=== PATIENT | female | born 1970 | race Caucasian/White ===

== ENCOUNTER 2019-06-11 23:39 | Inpatient (IN) | payer MEDICARE, OTHER ==
[~2019-06-11] VITALS: Ht 165.1 cm; Wt 112.3 kg
[2019-06-11] MEDS ORDERED: ELIQ5TAB PO (23:47)
[2019-06-11] MEDS ORDERED: SYNT175T2 PO (23:47)
[2019-06-11] MEDS ORDERED: [UNRECOGNIZED DRUG - REMARK] (23:57)
[2019-06-11] MEDS ORDERED: [UNRECOGNIZED DRUG - REMARK] (23:57)
[2019-06-12] VITALS (23 sets, daily range): BP systolic 92–154; BP diastolic 47–96
[2019-06-12] MEDS ORDERED: SING4GRA PO (00:02)
[2019-06-12] MEDS ORDERED: PLAQ200T4 PO (00:02)
[2019-06-12] MEDS ORDERED: GABA-845 PO (00:07)
[2019-06-12] MEDS ORDERED: MAGN400C2 PO (00:07)
[2019-06-12 00:32] LABS: BASO % 0.7 % (0.0-1.0); EOS % 0.4 % (0.0-3.0); LYMPH # 0.8 10^3/uL (1.5-5.0); LYMPH % 14.8 % (24.0-44.0); MEAN CORPUSCULAR HEMOGLOBIN 23.6 pg (27.0-33.0); MEAN CORPUSCULAR HGB CONC 29.3 g/dl (32.0-36.5); MEAN CORPUSCULAR VOLUME 80.5 fl (80.0-96.0); MONO # 0.5 10^3/uL (0.0-0.8); MONO % 8.1 % (0.0-5.0); NEUTROPHILS # 4.2 10^3/uL (1.5-8.5); NEUTROPHILS % 74.6 % (36.0-66.0); PLATELET COUNT, AUTOMATED 264 10^3/uL (150-450); RED BLOOD COUNT 2.46 10^6/uL (4.00-5.40); WHITE BLOOD COUNT 5.6 10^3/uL (4.0-10.0)
[2019-06-12 00:33] LABS: HEMATOCRIT 19.8 % (36.0-47.0); HEMOGLOBIN 5.8 g/dl (12.0-15.5)
[2019-06-12 00:50] LABS: BLOOD UREA NITROGEN 9 MG/DL (7-18); CALCIUM LEVEL 8.1 MG/DL (8.5-10.1); CARBON DIOXIDE LEVEL 26 MEQ/L (21-32); CHLORIDE LEVEL 100 MEQ/L (98-107); CK-MB VALUE MASS < 1.0 NG/ML (<3.6); CPK CREATINE PHOSPHOKINASE 123 U/L (26-192); CREATININE FOR GFR 1.01 MG/DL (0.55-1.30); GLOMERULAR FILTRATION RATE > 60.0 (>58); GLUCOSE, FASTING 166 MG/DL (70-100); MB/CK RELATIVE INDEX 0.81 (< OR =4); POTASSIUM SERUM 4.1 MEQ/L (3.5-5.1); SODIUM LEVEL 135 MEQ/L (136-145); TROPONIN I < 0.02 NG/ML (< 0.10)
[2019-06-12] MEDS ORDERED: HYDR200T3 PO (01:22)
[2019-06-12] MEDS ORDERED: SYNT175T2 PO (01:22)
[2019-06-12] MEDS ORDERED: SING10TA32 PO (01:22)
[2019-06-12] MEDS ORDERED: [UNRECOGNIZED DRUG - CODE] PO (01:22)
[2019-06-12] MEDS ORDERED: CVS400CA PO (01:22)
[2019-06-12] MEDS ORDERED: GABA-843 PO ×2 (01:22)
[2019-06-12] MEDS ORDERED: DIGO0.25 PO (01:22)
[2019-06-12] MEDS ORDERED: PROAAER10 INH (01:22)
[2019-06-12] MEDS ORDERED: ARTIDRO2 OU (01:22)
[2019-06-12] MEDS ORDERED: ACET-907 PO (01:22)
[2019-06-12] MEDS ORDERED: ELIQ5TAB PO (01:22)
[2019-06-12] MEDS ORDERED: MAGN400T3 PO (01:22)
--- NOTE | 2019-06-12 01:36 | HPEPDOC ---
[facility] Medical History & Physical Date of Admission Jun 12, 2019 Date of Service: Jun 12, 2019 Attending Physician: ALLYSON OVALLE MD History and Physical TIME OF SERVICE: 3:20 AM CHIEF COMPLAINT: Dizziness HISTORY OF PRESENT ILLNESS: This is a 48-year-old female who presents with complaints of feeling dizzy which has made it more difficult for her to walk. She reports bumping into the wall and various things. She has a history of dysfunctional uterine bleeding for a few months and has been seeing her camera technician in [place] who planned to refer her to [place] [facility] for hysterectomy because she was told that she was "high risk" because of her cardiac history. Over the last week the patient reports bleeding more heavily than usual, passing clots and having "abdominal pressure". According to her , who is at the bedside, the patient looks more pale than usual. Per Dr. Quinn, Dr. Horn BARREL TURNER is aware of this case. REVIEW OF SYSTEMS: 12 point review of systems negative except as listed in HPI PAST MEDICAL/ SURGICAL HISTORY: Atrial fibrillation. Nonobstructive CAD CHF, type unknown. Hypothyroidism. Sjgren syndrome. Vitiligo. Small fiber neuropathy Chronic hypertension She denies having history of diabetes, or CVA SOCIAL HISTORY: Nonsmoker. Does not drink alcohol FAMILY HISTORY: CAD Thyroid disorder. Myositis. ALLERGIES: Please see below. HOME MEDICATIONS: Please see below. PHYSICAL EXAMINATION: VITAL SIGNS: Please see below. GENERAL APPEARANCE: Well-nourished, well-developed, not in apparent distress HEENT: Normocephalic, atraumatic, she has conjunctival pallor, mucous members are moist and pink CARDIOVASCULAR: Regular rate and rhythm. No murmurs, rubs or gallops LUNGS: Clear to bilaterally on room air ABDOMEN: Abdomen is soft and the patient is complaining of discomfort with palpation of the lower quadrants MUSCULOSKELETAL: Range of motion is intact in all 4 extremities INTEGUMENT: She has generalized pallor NEUROLOGICAL: Cranial nerves II-12 grossly intact. Speech is not dysarthric PSYCHIATRIC: Alert and oriented to person, place and time, able to understand and follow commands LABORATORY DATA: See below. ASSESSMENT: Ms. Hogan is a 42 female with a past medical history of small fiber neuropathy, vitiligo, Sjogren syndrome, hypothyroidism, unspecified type of CHF, atrial fibrillation, & nonobstructive CAD who will be admitted for management of acute anemia, likely due to dysfunctional uterine bleeding. PLAN: 1. Acute blood loss anemia. Likely due to dysfunctional uterine bleeding. 3. Units of PRBCs have been ordered, but only one unit has been transfused Plan: Admit to medical floor/ f/u ortho stats / NPO pending Eval/follow-up iron panel, serial hemoglobin 2.SIRS Source TBD SIRS criterial include T 100.9 and HR 126 She is c/o abdominal pain therefore she may have a UTI or Endometritis Plan: telemetry / f/u lactic acid/ IVF/ will give one dose of empiric zosyn / f/u blood cx, UA w Ucx 3. Atrial fibrillation. Plan: Hold Elquis / c/w Digoxin 4. Nonobstructive CAD Plan: Resume home meds except for aspirin 5. CHF, type unknown. Control blood pressure Plan: Resume lasix 6. Hypothyroidism. Plan: Resume Synthroid 7. 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 Chronic hypertension Plan: Resume lisinopril & diltiazem 9. Asthma ? Plan: c/w Albuterol and Singulair 10. Morbid Obesity BMI 41.1kg/m2 Plan: can f/u AC/ she can f/u w her PCP for STOP BANG questionnaire director compensation consult & referral for Bariatric Surgeon / recommend cardiovascular exercise for 40 min 4-5 days a week DVT prophylaxis with SCDs. Disposition: likely home after more than 2 midnight stay Vital Signs Vital Signs Date Time Temp Pulse Resp B/P (MAP) Pulse Ox O2 Delivery O2 Flow Rate FiO2 06/12/19 00:46 105 18 06/12/19 00:31 100.8 06/11/19 23:58 186/86 (119) 97 06/11/19 23:40 Room Air Laboratory Data Labs 24H Laboratory Tests 2 06/12/19 00:16: Immature Granulocyte % (Auto) 1.4, Neutrophils (%) (Auto) 74.6H, Lymphocytes (%) (Auto) 14.8L, Monocytes (%) (Auto) 8.1H, Eosinophils (%) (Auto) 0.4, Basophils (%) (Auto) 0.7, Neutrophils # (Auto) 4.2, Lymphocytes # (Auto) 0.8L, Monocytes # (Auto) 0.5, Eosinophils # (Auto) 0.0, Basophils # (Auto) 0.0, Nucleated Red Blood Cells % (auto) 1.1H, Anion Gap 9, Glomerular Filtration Rate > 60.0, Calcium Level 8.1L, Total Creatine Kinase 123, Creatine Kinase MB < 1.0, Creatine Kinase MB Relative Index 0.81, Troponin I < 0.02 CBC/BMP Laboratory Tests 06/12/19 00:16 Home Medications Scheduled Apixaban (Eliquis) 5 Mg Tablet, 5 MG PO BID Cholecalciferol (Vitamin D3) (Vitamin D3) 400 Unit Capsule, 400 UNIT PO DAILY LUNCHTIME Digoxin (Digoxin) 250 Mcg Tablet, 250 MCG PO DAILY Diltiazem HCl (Diltiazem 12Hr ER) 90 Mg Cap.er.12h, 90 MG PO DAILY LUNCHTIME Furosemide (Furosemide) 20 Mg Tablet, 10 MG PO DAILY Gabapentin (Gabapentin) 300 Mg Capsule, 300 MG PO TID BREAKFAST, LUNCH AND DINNER Gabapentin (Gabapentin) 300 Mg Capsule, 600 MG PO QHS Hydroxychloroquine Sulfate (Hydroxychloroquine Sulfate) 200 Mg Tablet, 200 MG PO BID Levothyroxine Sodium (Synthroid) 175 Mcg Tablet, 175 MCG PO DAILY Lisinopril (Lisinopril) 10 Mg Tablet, 10 MG PO DAILY Magnesium Oxide (Magnesium Oxide) 400 Mg Tablet, 400 MG PO QPM DINNERTIME Montelukast Sodium (Singulair) 10 Mg Tablet, 10 MG PO QPM DINNERTIME Scheduled PRN Acetaminophen (Tylenol) 325 Mg Tablet, 325 MG PO Q4H PRN for PAIN Albuterol Sulfate (Proair Hfa) 8.5 Gm Hfa.aer.ad, 2 PUFF INH QID PRN for SHORTNESS OF BREATH Polyvinyl Alcohol (Artificial Tears) 15 Ml Drops, 2 DROP OU QID PRN for DRY EYES Allergies Coded Allergies: Sulfa (Sulfonamide Antibiotics) (Verified Allergy, Intermediate, Hives, 06/11/19) aspirin (Verified Allergy, Intermediate, hives, 06/11/19) A-FIB/CHADSVASC A-FIB History Current/History of A-Fib/PAF?: Yes Current PO Anticoag Therapy: Yes Age/Risk Factor Scoring CHADSVASC: CHADSVASC Response (Comments) Value Age Risk Factor Age < 65 years old 0 Gender Risk Factor Female 1 Hx of CHF Yes 1 Hx of HTN Yes 1 Hx of Stroke/TIA/or VTE No 0 Hx of Diabetes No 0 Hx of Vascular Disease No 0 Total 3 Treatment Treatment ordered: Apixaban ALLYSON OVALLE MD Jun 12, 2019 01:36
[2019-06-12] MEDS ORDERED: NS 1,000 ML IV ONE (01:45)
[2019-06-12] MEDS ORDERED: NS 1,000 ML IV SCH (02:45)
[2019-06-12] MEDS ORDERED: FURO20TA2 PO (04:04)
[2019-06-12] MEDS ORDERED: LISI10TA4 PO (04:04)
[2019-06-12] MEDS ORDERED: ACETAMINOPHEN 650MG ER TAB (TYLENOL ARTHRITIS) PO PRN (05:15)
[2019-06-12] MEDS ORDERED: ALBUTEROL 90 MCG/ACT 8GM HFA INHALER INH PRN (05:30)
[2019-06-12] MEDS ORDERED: POLYVINYL ALCOHOL OPHTH SOLN 15 ML(LIQUITEARS) OU PRN (05:30)
--- NOTE | 2019-06-12 06:19 | REP ---
Clinical: Acute chest pain . Comparison: None . Findings: The mediastinum and cardiac silhouette are stable and within normal limits for portable technique. The lung decker are clear without acute consolidation, effusion, or pneumothorax. Skeletal structures are intact. Impression: No acute cardiopulmonary process appreciated. Electronically Signed by Vernon Lawrence MD 06/12/2019 06:10 A
[2019-06-12] MEDS ORDERED: PIPERACILLIN/TAZOBACTAM SOD 3.375 GM in D5W MINI-BAG PLUS 50 ML IV ONE (06:30)
[2019-06-12] MEDS ORDERED: PILL CUTTER 1 EACH XX PRN (06:30)
[2019-06-12 07:55] LABS: INR 1.25; PROTHROMBIN TIME 15.4 SECONDS (11.8-14.0)
[2019-06-12] MEDS: LEVOTHYROXINE 150MCG TABLET (0.15MG) PO SCH (07:58)
[2019-06-12 08:16] LABS: PERCENT SATURATION 25.4 % (13.2-45.0)
[2019-06-12] MEDS: GABAPENTIN 300 MG CAP PO SCH ×4 (08:53→20:37)
[2019-06-12] MEDS ORDERED: FUROSEMIDE 40 MG/4 ML VIAL (J1940) IV ONE (09:00)
--- NOTE | 2019-06-12 09:29 | ECGEPIP ---
[facility] Test Date: 2019-06-12 Pat Name: TONJA MUNOZ Department: Room: [place] [address] Gender: Female Legal Executive: BASIL : 1970 Requested By: ALLYSON OVALLE Order Number: [id number] Reading MD: Katherine Yao Measurements Intervals [place] Rate: 77 P: 11 ID: [id number] QRS: 32 QRSD: 96 T: 27 QT: 379 QTc: 431 Interpretive Statements SINUS RHYTHM NORMAL NO PRIOR Electronically Signed on 06-12-2019 9:29:33 EST by Katherine Yao
--- NOTE | 2019-06-12 09:46 | CR ---
DATE OF CONSULTATION: 06/12/2019 CONSULTING SERVICE: OBGYN HISTORY: 40-year-old female who presents to the emergency room with complaint of feeling dizzy and light headed when she tries to walk. Reports bumping into the wall and various things. She has a history of abnormal bleeding since 05/2019, in fact she has bled every day since then. Her bleeding became heavy over the last week. She passed clots. She sees an OBGYN in [place], [place]. Plan to refer her to [facility] for hysterectomy. She had a D and C procedure in August of 2017 which reportedly did not show any endometrial cancer or hyperplasia. She had a right intrauterine device around the same time and that helped her bleeding temporarily, but eventually it fell out. The reason for referral to [place] is because of her "high risk" status due to cardiac issues. She denies any significant pain. MEDICAL HISTORY: 1. Atrial fibrillation. 2. Non-stress coronary artery disease. 3. CHF. 4. Hypothyroidism. 5. Sj gren's syndrome. 6. Vitiligo. 7. Small fiber neuropathy. 8. Chronic hypertension. SURGICAL HISTORY: 1. D and C procedure August 2017. ALLERGIES: 1. Sulfa. 2. Aspirin. SOCIAL HISTORY: Patient is and she lives in [facility]. She denies cigarettes, alcohol or drug use. FAMILY HISTORY: Uterine cancer in her mother. MEDICATIONS: 1. Eliquis 5 mg by mouth twice a day. 2. Vitamin D. 3. Digoxin 250 mg daily. 4. Diltiazem 90 mg daily. 5. Lasix 20 mg daily. 6. Gabapentin 300 mg three times a day. 7. Synthroid 175 mcg daily. 8. Hydroxychloroquine sulfate 200 mg twice a day. 9. Lisinopril 10 mg daily. 10. Magnesium. 11. Singulair 10 mg. 12. Tylenol. 12. Albuterol. PHYSICAL EXAMINATION: Blood pressure 114/66, pulse 78, respiratory rate 18. She is in apparent distress. Head and neck exam normal. Lungs clear. Heart regular rate and rhythm. Abdomen is nontender, soft and nondistended and no masses palpable. Extremities, nontender and trace edema. LABS: Hemoglobin 5.8 grams/deciliter. ASSESSMENT: 48-year-old female with menorrhagia, abnormal uterine bleeding and severe anemia. PLAN: Check ultrasound to rule out pelvic pathology while in the hospital. Recommend at least 4 units of packed red blood cells. Recommend starting Provera 10 mg daily to help decrease bleeding acutely. Ultimate choice is either hysterectomy or endometrial ablation. It bleeding stabilizes can proceed with hysterectomy after medical clearance from Dr. Fuller of Cardiology as an outpatient. I will continue to follow her during hospitalization.
[2019-06-12] MEDS: DIGOXIN 0.25 MG TAB PO SCH (10:38)
[2019-06-12] MEDS: HYDROXYCHLOROQUINE 200 MG TAB PO SCH ×2 (10:39→20:38)
[2019-06-12] MEDS: LISINOPRIL 10 MG TAB PO SCH (10:39)
[2019-06-12] MEDS: FUROSEMIDE 20 MG TAB PO SCH (10:39)
[2019-06-12] MEDS: medroxyPROGESTERone 5MG TABLET PO SCH (10:40)
[2019-06-12 14:17] LABS: HEMATOCRIT 26.2 % (36.0-47.0); HEMOGLOBIN 8.3 g/dl (12.0-15.5); MEAN CORPUSCULAR HEMOGLOBIN 25.2 pg (27.0-33.0); MEAN CORPUSCULAR HGB CONC 31.7 g/dl (32.0-36.5); MEAN CORPUSCULAR VOLUME 79.6 fl (80.0-96.0); PLATELET COUNT, AUTOMATED 250 10^3/uL (150-450); RED BLOOD COUNT 3.29 10^6/uL (4.00-5.40); WHITE BLOOD COUNT 7.5 10^3/uL (4.0-10.0)
--- NOTE | 2019-06-12 14:28 | IPNPDOC ---
Text Note Date of Service The patient was seen on 06/12/19. NOTE SUBJECTIVE: Continues to have menorrhagia. says has been going on for 2 months. No abdominal pain. No chest pain or sob. PHYSICAL EXAMINATION: VITAL SIGNS: Please see below. GENERAL APPEARANCE: Well-nourished, well-developed, not in apparent distress HEENT: Normocephalic, atraumatic, she has conjunctival pallor, mucous members are moist and pink CARDIOVASCULAR: Regular rate and rhythm. No murmurs, rubs or gallops LUNGS: Clear to bilaterally on room air ABDOMEN: Abdomen is soft and the patient is complaining of discomfort with palpation of the lower quadrants MUSCULOSKELETAL: Range of motion is intact in all 4 extremities INTEGUMENT: She has generalized pallor NEUROLOGICAL: Cranial nerves II-12 grossly intact. Speech is not dysarthric PSYCHIATRIC: Alert and oriented to person, place and time, able to understand and follow commands LABORATORY DATA and Radiology reviewed : See below. ASSESSMENT: Ms. Hogan is a 42 female with a past medical history of small fiber neuropathy, vitiligo, Sjogren syndrome, hypothyroidism, unspecified type of CHF, atrial fibrillation, & nonobstructive CAD who will be admitted for management of acute anemia, likely due to dysfunctional uterine bleeding. Acute blood loss anemia. due to dysfunctional uterine bleeding. 4Units of PRBCs monitor HH. Iron deficiency anemia due to ongoing menometrorrhagia. will start oral supplements. Dysfunctional uterine bleeding Seen by SENIOR MARKETING ASSOCIATE follow reccomendations will need hysterectomy at the later date as outpatient needs to follow with Dr Horn. SIRS but no sepsis. tachycardia was due to severe anemia. SIRS criterial include T 100.9 and HR 126 Atrial fibrillation. Plan: Hold Elquis / c/w Digoxin Nonobstructive CAD Resume home meds except for aspirin CHF, type unknown. Control blood pressure Resume lasix with IV lasix in between transfusions Hypothyroidism. 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 c/w Albuterol and Singulair Morbid Obesity BMI 41.1kg/m2 DVT prophylaxis with SCDs. VS,Fishbone, I+O VS, Fishbone, I+O Laboratory Tests 06/12/19 00:16 06/12/19 13:04 06/12/19 13:58 Vital Signs Date Time Temp Pulse Resp B/P (MAP) Pulse Ox O2 Delivery O2 Flow Rate FiO2 06/12/19 12:00 98.2 73 18 124/67 (86) 98 Room Air I&O- Last 24 Hours up to 6 AM 06/12/19 06:00 Intake Total 850 ml Balance 850 ml NADIRA BAGLEY MD Jun 12, 2019 14:28
--- NOTE | 2019-06-12 15:56 | REP ---
Pelvic sonography: History: Anemia. Menorrhagia. Findings: Transabdominal and transvaginal scanning are performed. Uterus is mildly enlarged measuring 9.4 x 5.2 x 6.1 cm. Endometrial echo is 0.8 cm thick. Myometrial texture is slightly heterogeneous. There is a 1.6 cm hypoechoic area in the posterior myometrium which may be a small fibroid. A 1.1 cm hypoechoic area is seen in the cervix, also likely fibroid. Right ovary measures 3.8 x 2.0 x 2.2 cm. There is a 1.9 cm cyst in the right ovary. Doppler flow is seen in the right ovary with resistive index 0.5. The left ovary measures 3.1 x 1.9 x 2.5 cm. There is a 2.5 cm cystic area in the left ovary. Visualized bladder awad are smooth. Doppler flow is seen in the left ovary. Resistive index is 0.50. There is no evidence of free fluid. Impression: Small follicle cysts, one in each ovary. Doppler flow is seen to both ovaries. Mildly enlarged uterus with two small fibroids suspected. Electronically Signed by Terry Mohamud MD 06/12/2019 05:22 P
[2019-06-12] MEDS: MAGNESIUM OXIDE 400 MG TAB (MAG-OX) PO SCH (17:49)
[2019-06-12] MEDS: MONTELUKAST 10 MG TAB PO SCH (17:49)
[2019-06-12] MEDS: ACETAMINOPHEN TAB 650MG DOSE (2X325MG) PO PRN (20:38)
[2019-06-13] VITALS (10 sets, daily range): BP systolic 99–136; BP diastolic 51–83
[2019-06-13] MEDS: ACETAMINOPHEN TAB 650MG DOSE (2X325MG) PO PRN (03:20)
[2019-06-13] MEDS: LEVOTHYROXINE 150MCG TABLET (0.15MG) PO SCH (05:53)
[2019-06-13] MEDS: LEVOTHYROXINE 25MCG TABLET (0.025MG) PO SCH (05:53)
[2019-06-13 07:21] LABS: BASO # 0.1 10^3/uL (0.0-0.2); BASO % 1.1 % (0.0-1.0); EOS # 0.2 10^3/uL (0.0-0.5); EOS % 3.6 % (0.0-3.0); HEMATOCRIT 27.9 % (36.0-47.0); HEMOGLOBIN 8.7 g/dl (12.0-15.5); LYMPH # 0.9 10^3/uL (1.5-5.0); LYMPH % 14.8 % (24.0-44.0); MEAN CORPUSCULAR HEMOGLOBIN 25.3 pg (27.0-33.0); MEAN CORPUSCULAR HGB CONC 31.2 g/dl (32.0-36.5); MEAN CORPUSCULAR VOLUME 81.1 fl (80.0-96.0); MONO # 0.6 10^3/uL (0.0-0.8); MONO % 10.1 % (0.0-5.0); NEUTROPHILS # 4.4 10^3/uL (1.5-8.5); NEUTROPHILS % 68.5 % (36.0-66.0); PLATELET COUNT, AUTOMATED 238 10^3/uL (150-450); RED BLOOD COUNT 3.44 10^6/uL (4.00-5.40); WHITE BLOOD COUNT 6.4 10^3/uL (4.0-10.0)
[2019-06-13 07:31] LABS: BLOOD UREA NITROGEN 10 MG/DL (7-18); CALCIUM LEVEL 8.1 MG/DL (8.5-10.1); CARBON DIOXIDE LEVEL 28 MEQ/L (21-32); CHLORIDE LEVEL 103 MEQ/L (98-107); CREATININE FOR GFR 0.71 MG/DL (0.55-1.30); GLOMERULAR FILTRATION RATE > 60.0 (>58); GLUCOSE, FASTING 97 MG/DL (70-100); POTASSIUM SERUM 3.9 MEQ/L (3.5-5.1); SODIUM LEVEL 138 MEQ/L (136-145)
[2019-06-13] MEDS: FUROSEMIDE 20 MG TAB PO SCH (08:56)
[2019-06-13] MEDS: HYDROXYCHLOROQUINE 200 MG TAB PO SCH ×2 (08:57→20:46)
[2019-06-13] MEDS: LISINOPRIL 10 MG TAB PO SCH (08:57)
[2019-06-13] MEDS: GABAPENTIN 300 MG CAP PO SCH ×4 (08:57→20:47)
[2019-06-13] MEDS: DIGOXIN 0.25 MG TAB PO SCH (08:57)
[2019-06-13] MEDS: FERROUS SULFATE 325MG TAB PO SCH ×2 (08:57→20:46)
[2019-06-13] MEDS: medroxyPROGESTERone 5MG TABLET PO SCH (08:58)
--- NOTE | 2019-06-13 15:50 | IPNPDOC ---
Text Note Date of Service The patient was seen on 06/13/19. NOTE SUBJECTIVE: yesterday bleeding had almost stopped after the progesterone however overnight again started having cramps and clots. No abdominal pain. No chest pain or sob. Pelvic US shows 2 fibroids. PHYSICAL EXAMINATION: VITAL SIGNS: Please see below. GENERAL APPEARANCE: Well-nourished, well-developed, not in apparent distress HEENT: Normocephalic, atraumatic, she has conjunctival pallor, mucous members are moist and pink CARDIOVASCULAR: Regular rate and rhythm. No murmurs, rubs or gallops LUNGS: Clear to bilaterally on room air ABDOMEN: Abdomen is soft and the patient is complaining of discomfort with palpation of the lower quadrants MUSCULOSKELETAL: Range of motion is intact in all 4 extremities INTEGUMENT: She has generalized pallor NEUROLOGICAL: Cranial nerves II-12 grossly intact. Speech is not dysarthric PSYCHIATRIC: Alert and oriented to person, place and time, able to understand and follow commands LABORATORY DATA and Radiology reviewed : See below. ASSESSMENT: Ms. Hogan is a 42 female with a past medical history of small fiber neuropathy, vitiligo, Sjogren syndrome, hypothyroidism, unspecified type of CHF, atrial fibrillation, & nonobstructive CAD who will be admitted for management of acute anemia, likely due to dysfunctional uterine bleeding. Acute blood loss anemia. due to dysfunctional uterine bleeding. 4Units of PRBCs monitor HH. Iron deficiency anemia due to ongoing menometrorrhagia. will start oral supplements. will give venofer Dysfunctional uterine bleeding Seen by SEISMOGRAPH CHIEF follow recommendations will need hysterectomy at the later date as outpatient needs to follow with Dr Horn. SIRS but no sepsis. tachycardia was due to severe anemia. SIRS criterial include T 100.9 and HR 126 Atrial fibrillation. Hold Elquis / c/w Digoxin discuss with SEISMOGRAPH CHIEF when to restart back eliquis. Nonobstructive CAD Resume home meds will restart ASA after bleeding stops. CHF, type unknown. Control blood pressure continue lasix. Hypothyroidism. 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 c/w Albuterol and Singulair Morbid Obesity BMI 41.1kg/m2 DVT prophylaxis with SCDs. VS,Fishbone, I+O VS, Fishbone, I+O Laboratory Tests 06/13/19 06:47 Vital Signs Date Time Temp Pulse Resp B/P (MAP) Pulse Ox O2 Delivery O2 Flow Rate FiO2 06/13/19 14:16 98.4 80 17 116/55 Room Air 06/13/19 13:16 97 I&O- Last 24 Hours up to 6 AM 06/13/19 06:00 Intake Total 2205 ml Output Total 1750 ml Balance 455 ml NADIRA BAGLEY MD Jun 13, 2019 15:50
[2019-06-13 16:31] LABS: HEMATOCRIT 30.7 % (36.0-47.0); HEMOGLOBIN 9.9 g/dl (12.0-15.5)
[2019-06-13] MEDS: MONTELUKAST 10 MG TAB PO SCH (17:25)
[2019-06-13] MEDS: MAGNESIUM OXIDE 400 MG TAB (MAG-OX) PO SCH (17:26)
[2019-06-13] MEDS ORDERED: IRON SUCROSE 500 MG in NS 250 ML IV ONE (18:00)
[2019-06-14] VITALS (17 sets, daily range): BP systolic 109–148; BP diastolic 51–78
[2019-06-14 06:10] LABS: BASO % 0.5 % (0.0-1.0); EOS # 0.3 10^3/uL (0.0-0.5); EOS % 4.3 % (0.0-3.0); HEMATOCRIT 27.6 % (36.0-47.0); HEMOGLOBIN 8.6 g/dl (12.0-15.5); LYMPH % 13.9 % (24.0-44.0); MEAN CORPUSCULAR HEMOGLOBIN 25.7 pg (27.0-33.0); MEAN CORPUSCULAR HGB CONC 31.2 g/dl (32.0-36.5); MEAN CORPUSCULAR VOLUME 82.6 fl (80.0-96.0); MONO # 0.8 10^3/uL (0.0-0.8); NEUTROPHILS # 4.9 10^3/uL (1.5-8.5); PLATELET COUNT, AUTOMATED 235 10^3/uL (150-450); RED BLOOD COUNT 3.34 10^6/uL (4.00-5.40); WHITE BLOOD COUNT 7.5 10^3/uL (4.0-10.0)
[2019-06-14] MEDS: LEVOTHYROXINE 25MCG TABLET (0.025MG) PO SCH (06:29)
[2019-06-14] MEDS: LEVOTHYROXINE 150MCG TABLET (0.15MG) PO SCH (06:29)
[2019-06-14 06:39] LABS: BLOOD UREA NITROGEN 9 MG/DL (7-18); CALCIUM LEVEL 7.9 MG/DL (8.5-10.1); CARBON DIOXIDE LEVEL 29 MEQ/L (21-32); CHLORIDE LEVEL 106 MEQ/L (98-107); CREATININE FOR GFR 0.65 MG/DL (0.55-1.30); GLOMERULAR FILTRATION RATE > 60.0 (>58); GLUCOSE, FASTING 92 MG/DL (70-100); SODIUM LEVEL 140 MEQ/L (136-145)
[2019-06-14] MEDS: DIGOXIN 0.25 MG TAB PO SCH (09:14)
[2019-06-14] MEDS: HYDROXYCHLOROQUINE 200 MG TAB PO SCH ×2 (09:14→21:08)
[2019-06-14] MEDS: GABAPENTIN 300 MG CAP PO SCH ×4 (09:14→21:08)
[2019-06-14] MEDS: FERROUS SULFATE 325MG TAB PO SCH ×2 (09:14→21:09)
[2019-06-14] MEDS: medroxyPROGESTERone 5MG TABLET PO SCH (09:15)
[2019-06-14] MEDS ORDERED: PROPOFOL 200 MG/20 ML VIAL As Ordered ONE (10:56)
[2019-06-14] MEDS ORDERED: dexameTHASONE 4 MG/ML 1ML VIAL (J1100) As Ordered ONE (10:56)
[2019-06-14] MEDS ORDERED: ONDANSETRON 4MG/2ML VIAL (J2405) As Ordered ONE (10:56)
[2019-06-14] MEDS ORDERED: fentaNYL 100 MCG/2 ML INJECTION (J3010) As Ordered ONE (10:56)
[2019-06-14] MEDS ORDERED: LIDOCAINE 2% INJ 100 MG/5 ML SDV (FOR ANES.) As Ordered ONE (10:56)
[2019-06-14] MEDS ORDERED: MIDAZOLAM INJ 2 MG/2 ML VIAL (J2250) As Ordered ONE (10:57)
[2019-06-14] MEDS ORDERED: PERCOCET 5MG/325MG TAB As Ordered ONE ×2 (12:47→13:16)
[2019-06-14] MEDS: PERCOCET 5MG/325MG TAB PO PRN ×2 (12:48→13:17)
--- NOTE | 2019-06-14 12:55 | RO ---
DATE OF OPERATION: 06/14/2019 PREOPERATIVE DIAGNOSIS: Menorrhagia. POSTOPERATIVE DIAGNOSIS: Menorrhagia. PROCEDURE: Hysteroscopy, dilation and curettage (D and C). SURGEON: Hector Horn MD FOILING MACHINE OPERATOR: ANESTHESIA: General endotracheal. ESTIMATED BLOOD LOSS: Minimal. FINDINGS: Normal-appearing endometrial cavity with slightly thickened endometrial lining. No endometrial masses present. DESCRIPTION OF PROCEDURE: Operative summary: Patient taken to the operating room where general endotracheal anesthesia was induced. She was prepped and draped in a sterile fashion in dorsal lithotomy position. A speculum was placed in the vagina. The anterior lip of the cervix was grasped with the tenaculum. The cervix was dilated with tapered dilators. A diagnostic hysteroscope using normal saline as distention medium was placed through the internal os. Visualization of the endometrial cavity revealed the findings noted above. Hysteroscope was removed. Sharp curettage was performed, and specimen sent to pathology. There was minimal bleeding at the end of the procedure. No active bleeding whatsoever. Sponge and instrument counts were correct. The patient went to recovery room in stable condition.
[2019-06-14] MEDS ORDERED: fentaNYL 100 MCG/2 ML INJECTION (J3010) IV PRN (13:00)
[2019-06-14] MEDS ORDERED: LR 1,000 ML IV SCH ×2 (13:00→14:30)
[2019-06-14] MEDS ORDERED: ACETAMINOPHEN 500 MG TAB PO PRN (14:30)
--- NOTE | 2019-06-14 17:23 | IPNPDOC ---
Subjective Date Seen The patient was seen on 06/14/19. Subjective Chief Complaint/HPI dizziness, weakness General: Reports: Other Symptoms; Denies: Chills, Night Sweats, Fatigue, Normal Appetite Objective Physical Examination General Exam: Positive: Alert, Cooperative, No Acute Distress Eye Exam: Positive: PERRLA ENT Exam: Positive: Mucous membr. moist/pink Neck Exam: Positive: Supple Chest Exam: Positive: Clear to auscultation, Normal air movement Heart Exam: Positive: Rate Normal Abdomen Exam: Positive: Normal bowel sounds Skin Exam: Positive: Nl turgor and temperature Neuro Exam: Positive: Normal Speech Psych Exam: Positive: Mental status NL, Mood NL Assessment /Plan Assessment 48 y/o F with PMH of small fiber neuropathy, vitiligo, Sjogren syndrome, hypothyroidism, unspecified type of CHF, atrial fibrillation, & nonobstructive CAD was admitted for management of acute anemia, likely due to dysfunctional uterine bleeding. Acute blood loss anemia. due to dysfunctional uterine bleeding. 6 Units of PRBCs and SKYLER will f/u with BUSH HOG OPERATOR. will f/u repeat labs Iron deficiency anemia due to ongoing menometrorrhagia. oral supplements. s/p venofer Dysfunctional uterine bleeding s/p D & C on 06/14/19 will f/u with BUSH HOG OPERATOR SIRS resolved tachycardia was due to severe anemia. SIRS criterial include T 100.9 and HR 126 Atrial fibrillation. now in sinus rhythm Hold Elquis / c/w Digoxin discuss with BUSH HOG OPERATOR when to restart back eliquis. Nonobstructive CAD home meds will restart ASA after bleeding stops. CHF, type unknown. Control blood pressure- lasix and lisinopril on hold Hypothyroidism. 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 Plan/VTE VTE Prophylaxis Ordered?: Yes VS, I&O, 24H, Fishbone Vital Signs/I&O Vital Signs Date Time Temp Pulse Resp B/P (MAP) Pulse Ox O2 Delivery O2 Flow Rate FiO2 06/14/19 17:12 97.5 70 18 116/70 96 Room Air I&O- Last 24 Hours up to 6 AM 06/14/19 06:00 Intake Total 1639 ml Balance 1639 ml Laboratory Data 24H LABS Laboratory Tests 2 06/14/19 05:35: Immature Granulocyte % (Auto) 4.3H, Neutrophils (%) (Auto) 66.0, Lymphocytes (%) (Auto) 13.9L, Monocytes (%) (Auto) 11.0H, Eosinophils (%) (Auto) 4.3H, Basophils (%) (Auto) 0.5, Neutrophils # (Auto) 4.9, Lymphocytes # (Auto) 1.0L, Monocytes # (Auto) 0.8, Eosinophils # (Auto) 0.3, Basophils # (Auto) 0.0, Nucleated Red Blood Cells % (auto) 1.3H, Anion Gap 5L, Glomerular Filtration Rate > 60.0, Calcium Level 7.9L CBC/BMP Laboratory Tests 06/14/19 05:35 Microbiology Microbiology 06/12/19 Blood Culture - Preliminary, Resulted No Growth after 48 hours. All Specime... MABEL LOONEY MD Jun 14, 2019 17:23
[2019-06-14] MEDS: MAGNESIUM OXIDE 400 MG TAB (MAG-OX) PO SCH (18:14)
[2019-06-14] MEDS: MONTELUKAST 10 MG TAB PO SCH (18:14)
[2019-06-15 06:10] VITALS: BP 112/57
[2019-06-15] MEDS: LEVOTHYROXINE 150MCG TABLET (0.15MG) PO SCH (06:11)
[2019-06-15] MEDS: LEVOTHYROXINE 25MCG TABLET (0.025MG) PO SCH (06:11)
[2019-06-15 06:46] LABS: BASO # 0.1 10^3/uL (0.0-0.2); BASO % 0.4 % (0.0-1.0); EOS % 0.2 % (0.0-3.0); HEMATOCRIT 34.1 % (36.0-47.0); LYMPH # 1.1 10^3/uL (1.5-5.0); LYMPH % 10.1 % (24.0-44.0); MEAN CORPUSCULAR HEMOGLOBIN 26.4 pg (27.0-33.0); MEAN CORPUSCULAR HGB CONC 31.1 g/dl (32.0-36.5); MONO # 0.7 10^3/uL (0.0-0.8); MONO % 6.2 % (0.0-5.0); NEUTROPHILS % 80.4 % (36.0-66.0); PLATELET COUNT, AUTOMATED 258 10^3/uL (150-450); RED BLOOD COUNT 4.01 10^6/uL (4.00-5.40); WHITE BLOOD COUNT 11.2 10^3/uL (4.0-10.0)
[2019-06-15 06:54] LABS: HEMOGLOBIN 10.6 g/dl (12.0-15.5)
[2019-06-15 07:08] LABS: BLOOD UREA NITROGEN 8 MG/DL (7-18); CALCIUM LEVEL 8.6 MG/DL (8.5-10.1); CARBON DIOXIDE LEVEL 26 MEQ/L (21-32); CHLORIDE LEVEL 107 MEQ/L (98-107); CREATININE FOR GFR 0.69 MG/DL (0.55-1.30); GLOMERULAR FILTRATION RATE > 60.0 (>58); GLUCOSE, FASTING 104 MG/DL (70-100); POTASSIUM SERUM 4.4 MEQ/L (3.5-5.1); SODIUM LEVEL 139 MEQ/L (136-145)
[2019-06-15] MEDS: HYDROXYCHLOROQUINE 200 MG TAB PO SCH ×2 (08:36→21:55)
[2019-06-15] MEDS: DIGOXIN 0.25 MG TAB PO SCH (08:36)
[2019-06-15] MEDS: FERROUS SULFATE 325MG TAB PO SCH ×2 (08:36→21:55)
[2019-06-15] MEDS: GABAPENTIN 300 MG CAP PO SCH ×4 (08:37→21:55)
[2019-06-15] MEDS: medroxyPROGESTERone 5MG TABLET PO SCH (08:39)
[2019-06-15] MEDS: LISINOPRIL 10 MG TAB PO SCH (10:34)
[2019-06-15] MEDS: FUROSEMIDE 20 MG TAB PO SCH (10:35)
[2019-06-15 14:30] VITALS: BP 114/53
--- NOTE | 2019-06-15 16:18 | IPNPDOC ---
Subjective Date Seen The patient was seen on 06/15/19. Subjective Chief Complaint/HPI dizziness Events since last encounter Pt stated that she is feeling much better. Denied dizziness. Pt also stated that vaginal bleeding has significantly decreased Objective Physical Examination General Exam: Positive: Alert, Cooperative, No Acute Distress Eye Exam: Positive: PERRLA ENT Exam: Positive: Mucous membr. moist/pink Neck Exam: Positive: Supple Chest Exam: Positive: Clear to auscultation, Normal air movement Heart Exam: Positive: Rate Normal Abdomen Exam: Positive: Normal bowel sounds Skin Exam: Positive: Nl turgor and temperature Neuro Exam: Positive: Normal Speech Psych Exam: Positive: Mental status NL, Mood NL Assessment /Plan Assessment 48 y/o F with PMH of small fiber neuropathy, vitiligo, Sjogren syndrome, hypothyroidism, unspecified type of CHF, atrial fibrillation, & nonobstructive CAD was admitted for management of acute anemia, likely due to dysfunctional uterine bleeding. 1. Acute blood loss anemia. due to dysfunctional uterine bleeding. 6 Units of PRBCs and SKYLER will f/u with HAND LAUNDERER for possible hysterectomy 2. Iron deficiency anemia due to ongoing menometrorrhagia. oral supplements. s/p venofer 3. Dysfunctional uterine bleeding s/p D & C on 06/14/19 will f/u with HAND LAUNDERER 4. SIRS resolved tachycardia was due to severe anemia. SIRS criterial include T 100.9 and HR 126 5. Atrial fibrillation. now in sinus rhythm Hold Elquis / c/w Digoxin discuss with HAND LAUNDERER when to restart back eliquis. 6. Nonobstructive CAD home meds will restart ASA after bleeding stops. 7. CHF, type unknown. Control blood pressure- lasix and lisinopril on hold 8. Hypothyroidism. Synthroid 9. 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 Chronic hypertension diltiazem 11. Asthma c/w Albuterol and Singulair 12 Morbid Obesity supportive care DVT prophylaxis with SCDs. Plan/VTE VTE Prophylaxis Ordered?: Yes VS, I&O, 24H, Fishbone Vital Signs/I&O Vital Signs Date Time Temp Pulse Resp B/P (MAP) Pulse Ox O2 Delivery O2 Flow Rate FiO2 06/15/19 14:30 97.8 80 18 114/53 (73) 97 Room Air I&O- Last 24 Hours up to 6 AM 06/15/19 06:00 Intake Total 2097 ml Output Total 505 ml Balance 1592 ml Laboratory Data 24H LABS Laboratory Tests 2 06/15/19 06:20: Immature Granulocyte % (Auto) 2.7, Neutrophils (%) (Auto) 80.4H, Lymphocytes (%) (Auto) 10.1L, Monocytes (%) (Auto) 6.2H, Eosinophils (%) (Auto) 0.2, Basophils (%) (Auto) 0.4, Neutrophils # (Auto) 9.0H, Lymphocytes # (Auto) 1.1L, Monocytes # (Auto) 0.7, Eosinophils # (Auto) 0.0, Basophils # (Auto) 0.1, Nucleated Red Blood Cells % (auto) 0.3H, Anion Gap 6L, Glomerular Filtration Rate > 60.0, Calcium Level 8.6 CBC/BMP Laboratory Tests 06/15/19 06:20 Microbiology Microbiology 06/12/19 Blood Culture - Preliminary, Resulted No Growth after 72 hours. All specime... MABEL LOONEY MD Jun 15, 2019 16:18
[2019-06-15] MEDS: MAGNESIUM OXIDE 400 MG TAB (MAG-OX) PO SCH (16:59)
[2019-06-15] MEDS: MONTELUKAST 10 MG TAB PO SCH (16:59)
[2019-06-15 20:30] VITALS: BP 124/58
[2019-06-15 21:17] VITALS: BP 124/66
[2019-06-15 21:53] LABS: CK-MB VALUE MASS < 1.0 NG/ML (<3.6); CPK CREATINE PHOSPHOKINASE 54 U/L (26-192); MB/CK RELATIVE INDEX 1.85 (< OR =4); TROPONIN I < 0.02 NG/ML (< 0.10)
[2019-06-15] MEDS: ATORVASTATIN 20 MG TAB PO SCH (21:55)
[2019-06-15 22:05] VITALS: BP 144/78
[2019-06-15 22:11] LABS: CHOLESTEROL LEVEL 142 MG/DL (<200); CHOLESTEROL RISK RATIO 2.958 (<5); HDL CHOLESTEROL 48 MG/DL (>40); LDL CHOLESTEROL 71 MG/DL (<100); NON-HDL-C 94 MG/DL; TRIGLYCERIDES LEVEL 114 MG/DL (<150)
[2019-06-15] MEDS ORDERED: NITROGLYCERIN 0.3 MG SUBL TAB SL PRN (22:30)
[2019-06-15 23:59] VITALS: BP 123/58
[2019-06-16 04:00] VITALS: BP 128/60
[2019-06-16] MEDS: LEVOTHYROXINE 150MCG TABLET (0.15MG) PO SCH (05:45)
[2019-06-16] MEDS: LEVOTHYROXINE 25MCG TABLET (0.025MG) PO SCH (05:46)
[2019-06-16 05:55] LABS: BASO # 0.1 10^3/uL (0.0-0.2); BASO % 0.7 % (0.0-1.0); EOS # 0.1 10^3/uL (0.0-0.5); EOS % 1.7 % (0.0-3.0); HEMATOCRIT 31.1 % (36.0-47.0); HEMOGLOBIN 9.8 g/dl (12.0-15.5); LYMPH # 1.9 10^3/uL (1.5-5.0); LYMPH % 23.2 % (24.0-44.0); MEAN CORPUSCULAR HEMOGLOBIN 26.6 pg (27.0-33.0); MEAN CORPUSCULAR HGB CONC 31.5 g/dl (32.0-36.5); MEAN CORPUSCULAR VOLUME 84.5 fl (80.0-96.0); MONO # 0.6 10^3/uL (0.0-0.8); MONO % 7.1 % (0.0-5.0); NEUTROPHILS # 5.2 10^3/uL (1.5-8.5); NEUTROPHILS % 65.4 % (36.0-66.0); PLATELET COUNT, AUTOMATED 237 10^3/uL (150-450); RED BLOOD COUNT 3.68 10^6/uL (4.00-5.40)
[2019-06-16 06:15] LABS: BLOOD UREA NITROGEN 10 MG/DL (7-18); CALCIUM LEVEL 8.2 MG/DL (8.5-10.1); CARBON DIOXIDE LEVEL 28 MEQ/L (21-32); CHLORIDE LEVEL 109 MEQ/L (98-107); CREATININE FOR GFR 0.74 MG/DL (0.55-1.30); GLOMERULAR FILTRATION RATE > 60.0 (>58); GLUCOSE, FASTING 90 MG/DL (70-100); POTASSIUM SERUM 4.3 MEQ/L (3.5-5.1); SODIUM LEVEL 143 MEQ/L (136-145)
[2019-06-16 07:29] VITALS: BP 120/59
--- NOTE | 2019-06-16 08:32 | ECGEPIP ---
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
[2019-06-16] MEDS: FERROUS SULFATE 325MG TAB PO SCH ×2 (09:33→20:48)
[2019-06-16] MEDS: DIGOXIN 0.25 MG TAB PO SCH (09:33)
[2019-06-16] MEDS: LISINOPRIL 10 MG TAB PO SCH (09:34)
[2019-06-16] MEDS: GABAPENTIN 300 MG CAP PO SCH ×4 (09:34→20:48)
[2019-06-16] MEDS: HYDROXYCHLOROQUINE 200 MG TAB PO SCH ×2 (09:35→20:48)
[2019-06-16] MEDS: medroxyPROGESTERone 5MG TABLET PO SCH (09:36)
[2019-06-16] MEDS: FUROSEMIDE 20 MG TAB PO SCH (09:36)
[2019-06-16 12:00] VITALS: BP 136/80
[2019-06-16 16:00] VITALS: BP 132/73
--- NOTE | 2019-06-16 16:53 | IPNPDOC ---
Subjective Date Seen The patient was seen on 06/16/19. Subjective Chief Complaint/HPI dizziness/weakness Events since last encounter Over the night pt was transferred to PCU for c/o chest tightness and non s pecific EKG changes. Pt was seen and examined at bedside. Pt denied chest tightness but was concerned if she is going to have hysterectomy during this hospitalization Objective Physical Examination General Exam: Positive: Alert, Cooperative, No Acute Distress ENT Exam: Positive: Mucous membr. moist/pink Neck Exam: Positive: Supple Chest Exam: Positive: Clear to auscultation, Normal air movement Heart Exam: Positive: Rate Normal Abdomen Exam: Positive: Normal bowel sounds Skin Exam: Positive: Nl turgor and temperature Neuro Exam: Positive: Normal Speech Psych Exam: Positive: Mental status NL, Mood NL Assessment /Plan Assessment 48 y/o F with PMH of small fiber neuropathy, vitiligo, Sjogren syndrome, hypothyroidism, unspecified type of CHF, atrial fibrillation, & nonobstructive CAD was admitted for management of acute anemia, likely due to dysfunctional uterine bleeding. 1. Episode of chest tightness resolved unclear etiology will f/u with cardiology for pre op eval if pt goes for hysterectomy during this hospitalization 2. Acute blood loss anemia. due to dysfunctional uterine bleeding. 6 Units of PRBCs and SKYLER Repeat H/H stable will f/u with COMBER FIXER for possible hysterectomy 3. Iron deficiency anemia due to ongoing menometrorrhagia. oral supplements. s/p venofer 4. Dysfunctional uterine bleeding s/p D & C on 06/14/19 will f/u with COMBER FIXER 5. SIRS resolved tachycardia was due to severe anemia. SIRS criterial include T 100.9 and HR 126 6. Atrial fibrillation. now in sinus rhythm Hold Elquis / c/w Digoxin discuss with COMBER FIXER when to restart back eliquis. 7. Nonobstructive CAD home meds will restart ASA after bleeding stops. 8. CHF, type unknown. Control blood pressure- lasix and lisinopril on hold 9. Hypothyroidism. Synthroid 10. 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 Chronic hypertension diltiazem 12. Asthma c/w Albuterol and Singulair 13 Morbid Obesity supportive care DVT prophylaxis with SCDs. Plan/VTE VTE Prophylaxis Ordered?: Yes VS, I&O, 24H, Fishbone Vital Signs/I&O Vital Signs Date Time Temp Pulse Resp B/P (MAP) Pulse Ox O2 Delivery O2 Flow Rate FiO2 06/16/19 12:00 97.5 68 16 136/80 (98) 97 Room Air I&O- Last 24 Hours up to 6 AM 06/16/19 06:00 Intake Total 840 ml Balance 840 ml Laboratory Data 24H LABS Laboratory Tests 2 06/15/19 21:24: Total Creatine Kinase 54, Creatine Kinase MB < 1.0, Creatine Kinase MB Relative Index 1.85, Troponin I < 0.02, Triglycerides Level 114, Total Cholesterol 142, LDL Cholesterol 71, Non-HDL Cholesterol (LDL + VLDL) 94, Total HDL Cholesterol 48, Cholesterol/HDL Ratio 2.958 06/16/19 01:05: Troponin I < 0.02 06/16/19 05:37: Troponin I < 0.02, Immature Granulocyte % (Auto) 1.9, Neutrophils (%) (Auto) 65.4, Lymphocytes (%) (Auto) 23.2L, Monocytes (%) (Auto) 7.1H, Eosinophils (%) (Auto) 1.7, Basophils (%) (Auto) 0.7, Neutrophils # (Auto) 5.2, Lymphocytes # (Auto) 1.9, Monocytes # (Auto) 0.6, Eosinophils # (Auto) 0.1, Basophils # (Auto) 0.1, Nucleated Red Blood Cells % (auto) 0.0, Anion Gap 6L, Glomerular Filtration Rate > 60.0, Calcium Level 8.2L CBC/BMP Laboratory Tests 06/15/19 21:24 06/16/19 05:37 Microbiology Microbiology 06/12/19 Blood Culture - Preliminary, Resulted No Growth after 72 hours. All specime... MABEL LOONEY MD Jun 16, 2019 16:53
[2019-06-16] MEDS: MONTELUKAST 10 MG TAB PO SCH (17:05)
[2019-06-16] MEDS: MAGNESIUM OXIDE 400 MG TAB (MAG-OX) PO SCH (17:05)
[2019-06-16 20:00] VITALS: BP 130/66
[2019-06-16] MEDS: ATORVASTATIN 20 MG TAB PO SCH (20:50)
[2019-06-16 23:20] VITALS: BP 113/61
[2019-06-17 06:00] VITALS: BP 116/66
[2019-06-17] MEDS: LEVOTHYROXINE 25MCG TABLET (0.025MG) PO SCH (06:04)
[2019-06-17] MEDS: LEVOTHYROXINE 150MCG TABLET (0.15MG) PO SCH (06:04)
[2019-06-17 08:00] VITALS: BP 116/58
[2019-06-17 08:52] LABS: BASO # 0.1 10^3/uL (0.0-0.2); BASO % 0.8 % (0.0-1.0); EOS # 0.2 10^3/uL (0.0-0.5); EOS % 3.5 % (0.0-3.0); HEMOGLOBIN 10.4 g/dl (12.0-15.5); LYMPH # 1.7 10^3/uL (1.5-5.0); MEAN CORPUSCULAR HGB CONC 30.6 g/dl (32.0-36.5); MEAN CORPUSCULAR VOLUME 88.3 fl (80.0-96.0); MONO # 0.6 10^3/uL (0.0-0.8); MONO % 8.5 % (0.0-5.0); NEUTROPHILS # 3.9 10^3/uL (1.5-8.5); NEUTROPHILS % 59.4 % (36.0-66.0); PLATELET COUNT, AUTOMATED 221 10^3/uL (150-450); RED BLOOD COUNT 3.85 10^6/uL (4.00-5.40); WHITE BLOOD COUNT 6.6 10^3/uL (4.0-10.0)
[2019-06-17 09:05] LABS: BLOOD UREA NITROGEN 12 MG/DL (7-18); CALCIUM LEVEL 8.5 MG/DL (8.5-10.1); CARBON DIOXIDE LEVEL 26 MEQ/L (21-32); CHLORIDE LEVEL 107 MEQ/L (98-107); CREATININE FOR GFR 0.72 MG/DL (0.55-1.30); GLOMERULAR FILTRATION RATE > 60.0 (>58); GLUCOSE, FASTING 84 MG/DL (70-100); SODIUM LEVEL 139 MEQ/L (136-145)
[2019-06-17] MEDS: GABAPENTIN 300 MG CAP PO SCH ×4 (09:42→21:51)
[2019-06-17] MEDS: FERROUS SULFATE 325MG TAB PO SCH ×2 (09:43→21:53)
[2019-06-17] MEDS: DIGOXIN 0.25 MG TAB PO SCH (09:44)
[2019-06-17] MEDS: FUROSEMIDE 20 MG TAB PO SCH (09:44)
[2019-06-17] MEDS: LISINOPRIL 10 MG TAB PO SCH (09:46)
[2019-06-17] MEDS: HYDROXYCHLOROQUINE 200 MG TAB PO SCH ×2 (09:47→21:52)
[2019-06-17] MEDS: medroxyPROGESTERone 5MG TABLET PO SCH (09:50)
[2019-06-17 12:00] VITALS: BP 131/73
[2019-06-17 16:00] VITALS: BP 133/74
--- NOTE | 2019-06-17 17:28 | IPNPDOC ---
Subjective Date Seen The patient was seen on 06/17/19. Subjective Chief Complaint/HPI weakness Events since last encounter Pt c/o mild weakness but stated that it has significantly improved Objective Physical Examination General Exam: Positive: Alert, Cooperative, No Acute Distress ENT Exam: Positive: Mucous membr. moist/pink Neck Exam: Positive: Supple Chest Exam: Positive: Clear to auscultation, Normal air movement Heart Exam: Positive: Rate Normal Abdomen Exam: Positive: Normal bowel sounds Skin Exam: Positive: Nl turgor and temperature Neuro Exam: Positive: Normal Speech, Strength at 5/5 X4 ext Psych Exam: Positive: Mental status NL, Mood NL Assessment /Plan Assessment 48 y/o F with PMH of small fiber neuropathy, vitiligo, Sjogren syndrome, hypothyroidism, unspecified type of CHF, atrial fibrillation, & nonobstructive CAD was admitted for management of acute anemia, likely due to dysfunctional uterine bleeding. Labs reviewed 1. Episode of chest tightness resolved unclear etiology will f/u with cardiology for pre op eval if pt goes for hysterectomy during this hospitalization 2. Acute blood loss anemia. due to dysfunctional uterine bleeding. 6 Units of PRBCs and SKYLER Repeat H/H stable will f/u with SPEECH PATHOLOGY SUPERVISOR for possible hysterectomy 3. Iron deficiency anemia due to ongoing menometrorrhagia. oral supplements. s/p venofer 4. Dysfunctional uterine bleeding s/p D & C on 06/14/19 will f/u with SPEECH PATHOLOGY SUPERVISOR 5. SIRS resolved tachycardia was due to severe anemia. SIRS criterial include T 100.9 and HR 126 6. Atrial fibrillation. now in sinus rhythm Hold Elquis / c/w Digoxin discuss with SPEECH PATHOLOGY SUPERVISOR when to restart back eliquis. will f/u with cardiology recommendation 7. Nonobstructive CAD home meds will restart ASA after bleeding stops. 8. CHF, type unknown. Control blood pressure- lasix and lisinopril on hold 9. Hypothyroidism. Synthroid 10. 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 Chronic hypertension diltiazem 12. Asthma c/w Albuterol and Singulair 13 Morbid Obesity supportive care DVT prophylaxis with SCDs. Plan/VTE VTE Prophylaxis Ordered?: Yes VS, I&O, 24H, Fishbone Vital Signs/I&O Vital Signs Date Time Temp Pulse Resp B/P (MAP) Pulse Ox O2 Delivery O2 Flow Rate FiO2 06/17/19 16:14 63 133/74 06/17/19 16:00 98.2 16 96 Room Air I&O- Last 24 Hours up to 6 AM 06/17/19 06:00 Intake Total 600 ml Output Total 0 ml Balance 600 ml Laboratory Data 24H LABS Laboratory Tests 2 06/17/19 08:11: Immature Granulocyte % (Auto) 1.8, Neutrophils (%) (Auto) 59.4, Lymphocytes (%) (Auto) 26.0, Monocytes (%) (Auto) 8.5H, Eosinophils (%) (Auto) 3.5H, Basophils (%) (Auto) 0.8, Neutrophils # (Auto) 3.9, Lymphocytes # (Auto) 1.7, Monocytes # (Auto) 0.6, Eosinophils # (Auto) 0.2, Basophils # (Auto) 0.1, Nucleated Red Blood Cells % (auto) 0.0, Anion Gap 6L, Glomerular Filtration Rate > 60.0, Calcium Level 8.5 CBC/BMP Laboratory Tests 06/17/19 08:11 Microbiology Microbiology 06/12/19 Blood Culture - Final, Complete NO GROWTH AFTER 5 DAYS MABEL LOONEY MD Jun 17, 2019 17:28
[2019-06-17] MEDS: MAGNESIUM OXIDE 400 MG TAB (MAG-OX) PO SCH (17:45)
[2019-06-17] MEDS: MONTELUKAST 10 MG TAB PO SCH (17:45)
[2019-06-17 20:00] VITALS: BP 147/68
[2019-06-17] MEDS: ATORVASTATIN 20 MG TAB PO SCH (21:00)
[2019-06-18] VITALS (7 sets, daily range): BP systolic 115–134; BP diastolic 58–71
[2019-06-18] MEDS: LEVOTHYROXINE 150MCG TABLET (0.15MG) PO SCH (05:51)
[2019-06-18] MEDS: LEVOTHYROXINE 25MCG TABLET (0.025MG) PO SCH (05:51)
[2019-06-18 06:50] LABS: BASO # 0.1 10^3/uL (0.0-0.2); BASO % 0.6 % (0.0-1.0); EOS # 0.2 10^3/uL (0.0-0.5); EOS % 2.9 % (0.0-3.0); HEMATOCRIT 35.7 % (36.0-47.0); HEMOGLOBIN 11.1 g/dl (12.0-15.5); LYMPH % 25.8 % (24.0-44.0); MEAN CORPUSCULAR HEMOGLOBIN 27.4 pg (27.0-33.0); MEAN CORPUSCULAR HGB CONC 31.1 g/dl (32.0-36.5); MEAN CORPUSCULAR VOLUME 88.1 fl (80.0-96.0); MONO # 0.6 10^3/uL (0.0-0.8); NEUTROPHILS # 4.9 10^3/uL (1.5-8.5); PLATELET COUNT, AUTOMATED 250 10^3/uL (150-450); RED BLOOD COUNT 4.05 10^6/uL (4.00-5.40); WHITE BLOOD COUNT 7.9 10^3/uL (4.0-10.0)
[2019-06-18 07:20] LABS: BLOOD UREA NITROGEN 11 MG/DL (7-18); CALCIUM LEVEL 8.5 MG/DL (8.5-10.1); CARBON DIOXIDE LEVEL 27 MEQ/L (21-32); CHLORIDE LEVEL 104 MEQ/L (98-107); CREATININE FOR GFR 0.83 MG/DL (0.55-1.30); GLOMERULAR FILTRATION RATE > 60.0 (>58); GLUCOSE, FASTING 95 MG/DL (70-100); SODIUM LEVEL 138 MEQ/L (136-145)
[2019-06-18] MEDS: FERROUS SULFATE 325MG TAB PO SCH ×2 (09:06→22:04)
[2019-06-18] MEDS: GABAPENTIN 300 MG CAP PO SCH ×4 (09:06→22:05)
[2019-06-18] MEDS: DIGOXIN 0.25 MG TAB PO SCH (09:07)
[2019-06-18] MEDS: LISINOPRIL 10 MG TAB PO SCH (09:07)
[2019-06-18] MEDS: FUROSEMIDE 20 MG TAB PO SCH (09:07)
[2019-06-18] MEDS: HYDROXYCHLOROQUINE 200 MG TAB PO SCH ×2 (09:08→22:05)
[2019-06-18] MEDS: medroxyPROGESTERone 5MG TABLET PO SCH (09:10)
[2019-06-18] MEDS: MAGNESIUM OXIDE 400 MG TAB (MAG-OX) PO SCH (17:30)
[2019-06-18] MEDS: MONTELUKAST 10 MG TAB PO SCH (17:30)
--- NOTE | 2019-06-18 19:51 | IPNPDOC ---
Subjective Date Seen The patient was seen on 06/18/19. Subjective Chief Complaint/HPI She had no overnight events. Denies any lightheadedness, dizziness. Still reports spotting. Objective Physical Examination General Exam: Positive: Alert, Cooperative, No Acute Distress ENT Exam: Positive: Mucous membr. moist/pink Neck Exam: Positive: Supple Chest Exam: Positive: Clear to auscultation, Normal air movement Heart Exam: Positive: Rate Normal Abdomen Exam: Positive: Normal bowel sounds Skin Exam: Positive: Nl turgor and temperature Neuro Exam: Positive: Normal Speech, Strength at 5/5 X4 ext Psych Exam: Positive: Mental status NL, Mood NL Other physical findings PHYSICAL EXAMINATION: VITAL SIGNS: Please see below. GENERAL: No distress HEENT: Normocephalic, atraumatic, moist mucous membranes, no pallor NECK: Supple CARDIOVASCULAR EXAMINATION: S1, S2 RESPIRATORY EXAMINATION: CTAB ABDOMINAL EXAMINATION: Soft, nontender, nondistended, positive bowel sounds EXTREMITIES: trace edema SKIN: No rash NEUROLOGICAL EXAMINATION: Alert and oriented 3, no focal deficits PSYCHIATRIC EXAMINATION: Calm and cooperative, appropriate affect Assessment /Plan Assessment Pt is a 48 yoF with PMH of small fiber neuropathy, vitiligo, Sjogren syndrome, h ypothyroidism, unspecified type of CHF, atrial fibrillation, & nonobstructive CAD was admitted for management of acute anemia due to abnormal uterine bleeding. #AUB/DUB: s/p D & C on 06/14/19, plan for hysterectomy 06/20, cardiology cleared pt, dc statin and eliquis (for A. 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 home meds #CHF, type unknown: hold home lasix and lisinopril #Hypothyroidism: continue home meds #Sjgren syndrome/ autoimmunce syndrome: continue home gabapentin & hydroxychloroquine #Chronic hypertension: continue home meds #Asthma: continue home meds #Morbid Obesity: supportive care, outpt f/u DVT prophylaxis with SCDs. Full code Plan/VTE VTE Prophylaxis Ordered?: Yes VS, I&O, 24H, Fishbone Vital Signs/I&O Vital Signs Date Time Temp Pulse Resp B/P (MAP) Pulse Ox O2 Delivery O2 Flow Rate FiO2 06/18/19 17:36 97.9 71 16 127/71 (89) 97 Room Air I&O- Last 24 Hours up to 6 AM 06/18/19 06:00 Intake Total 1320 ml Balance 1320 ml Laboratory Data 24H LABS Laboratory Tests 2 06/18/19 06:37: Immature Granulocyte % (Auto) 1.7, Neutrophils (%) (Auto) 62.0, Lymphocytes (%) (Auto) 25.8, Monocytes (%) (Auto) 7.0H, Eosinophils (%) (Auto) 2.9, Basophils (%) (Auto) 0.6, Neutrophils # (Auto) 4.9, Lymphocytes # (Auto) 2.0, Monocytes # (Auto) 0.6, Eosinophils # (Auto) 0.2, Basophils # (Auto) 0.1, Nucleated Red Blood Cells % (auto) 0.0, Anion Gap 7L, Glomerular Filtration Rate > 60.0, Calcium Level 8.5 CBC/BMP Laboratory Tests 06/18/19 06:37 Microbiology Microbiology 06/12/19 Blood Culture - Final, Complete NO GROWTH AFTER 5 DAYS DAVID QUINTERO MD Jun 18, 2019 19:51
--- NOTE | 2019-06-18 22:32 | CR ---
DATE OF CONSULTATION: 06/18/2019 (Previous last name as of December 13, 2018 was Justin) CARDIOLOGY CONSULTATION. REFERRING PHYSICIAN: Abdullahi Jeong MD We apologized for the delay in this consultation. The order was actually placed June 14, 2019 at 01:44 p.m., but our cardiology service was never notified until June 17, 2019. INDICATION: Preoperative clearance for a tentative hysterectomy for menorrhagia. The patient on chronic oral anticoagulation for paroxysmal atrial fibrillation. HISTORY: This 48-year-old mother of one, disabled resident of [place], [place], is well-known to my cardiology practice with morbid obesity, hypertensive heart disease, abnormal EKG, obstructive sleep apnea, paroxysmal atrial fibrillation/ flutter (May 22, 2018), presenting with chest discomfort and congestive heart failure (diastolic dysfunction). She also has his Sj gren syndrome, polymyositis/mixed connective tissue disease, small fiber neuropathy and hypothyroidism. Has been on oral anticoagulation since April 2018 complicated by menorrhagia and anemia admitted through the emergency room June 11, 2019 with symptomatic anemia and hemoglobin of 5.8 and microcytosis attributed to heavy vaginal bleeding with clots. Admission EKG showed sinus rhythm at 77 beats per minute (BPM) with occasional PAC. She was admitted to the medical floor and given 7 units of packed red blood cells with good effect. She tolerated this without difficulty. On Eliquis for 48 hours June 14, 2019, underwent hysteroscopic examination and D C and tolerated this procedure well. Following this procedure and Provera therapy, menstrual bleeding has decreased considerably; but in light of the need for her oral anticoagulation and ongoing bleeding, a laparoscopic hysterectomy is tentatively planned for June 20, 2019. Her postoperative course was complicated by an episode of chest tightness with EKG interpreted as showing atrial flutter with ST/T-wave abnormalities transferred to a telemetry unit. At the time, she was first monitored; and for 24 hours, remained absolutely regular in sinus rhythm. No further EKG was obtained, but serial Troponin I levels were negative. She had been transferred off of the telemetry unit and was tentatively waiting for her surgery June 20. Has remained free of any further chest pain. Had been having considerable shortness of breath and weakness when she was markedly anemic, but not following her blood transfusions. Has not been aware of any palpitations and has been free of lateralizing neurological deficit off her oral anticoagulation. As mentioned, continues to have vaginal bleeding. PAST CARDIAC DISEASE/EVENTS/TESTS: History of intermittent chest pain dating back to May 22, 2018. May 26, 2018 cardiac catheterization [place], [place] showed hyperkinetic left ventricle, LVEF of 70%, elevated left ventricular end-diastolic pressure of 20-23 mmHg, no left ventricle outflow tract obstruction, no mitral regurgitation and normal coronary arteries. May 23, 2018, echocardiogram at [facility] for paroxysmal atrial flutter, was a technically difficult study, but showed at least borderline left ventricle hypertrophy with normal wall motion, borderline left atrial enlargement with prolongation of left ventricular relaxation, normal right heart chamber sizes and motion with mild pulmonary hypertension (the right ventricular systolic pressure is 36 mmHg, normal appearing valvular structures with mild mitral and tricuspid insufficiency. Normal aortic root size. No pericardial effusion. August 22, 2018 to September 21, 2018, multi event monitor showed sinus rhythm/sinus arrhythmia with occasional PACs and PVCs, one atrial triplet, but no atrial tachyarrhythmia. Observed heart rate 61-129 bpm. Six symptomatic transmissions for palpitations, dyspnea and chest pain correlated with sinus rhythm/sinus tachycardia rate 63-129 bpm. No asymptomatic auto trigger transmissions. CORONARY RISK FACTORS: Obesity, hypertension and family history of premature coronary disease. No history of smoking, diabetes, hypercholesterolemia or symptomatic peripheral or carotid vascular disease. OTHER PAST MEDICAL/SURGICAL HISTORY: Asthmatic bronchitis. Morbid obesity. Obstructive sleep apnea. Inflammatory disease - Sj gren syndrome, polymyositis, mixed connective tissue disease. Fibrocystic disease of the breast. Hypothyroidism. Small fiber neuropathy. Despite the lower leg swelling, carotid ultrasound of both lower extremities negative for deep venous thrombosis. Prior tonsillectomy, D C with a single normal vaginal delivery. Prior sinus surgery and wisdom tooth extraction, esophageal biopsy and left arm muscle biopsy, prior endoscopy, prior liver biopsy. MEDICATIONS: At home, the patient takes diltiazem ER 90 mg daily, digoxin 250 mcg daily, torsemide 10 mg as needed for ankle swelling, lisinopril 10 mg daily, withhold for dizziness, Eliquis 5 mg twice a day, magnesium oxide 4 mg by mouth daily, omeprazole 20 mg twice weekly, ProAir inhaler 2 puffs four times a day as needed, montelukast 10 mg daily, levofloxacin 175 mcg daily, gabapentin 300 mg twice a day with 600 mg at bedtime (q.h.s.), hydroxychloroquine 200 mg by mouth twice a day, Artificial Tears one drops each eye twice daily and vitamin D3 2000 units 2 tablets daily. ALLERGIES: SULFA (hives), ASPIRIN (hives), CINNAMON (asthma). REVIEW OF SYSTEMS: Fatigue and dyspnea as mentioned with a low-carbohydrate diet, has lost 40 pounds since her last visit in my office. Has reduced visual acuity, wears glasses, dry eyes. Intermittent chest pain and shortness of breath as mentioned, wears C-PAP. Gastroesophageal reflux disease with irritable bowel. Nocturia times one nightly. Intermittent lower leg swelling. Muscular aches, myalgia and lower back pain. Intermittent lightheadedness and paresthesia of her arms, hands and feet. Anxiety. Heat and cold intolerance. Bleeding as mentioned above. Environmental allergies. All other systems review is negative. PHYSICAL EXAMINATION: CONSTITUTIONAL: Morbidly obese, middle-aged lady, laying comfortably with the head of the bed elevated at 30 degrees. VITAL SIGNS: Heart rate 72 bpm and regular, blood pressure 127/71. Respiratory rate 16, O2 saturation 97% on room air. Afebrile. Weight at 247 pounds, height 65 inches, BMI of 41 EYES: Currently normal appearing conjunctiva without pallor or icterus. No xanthelasma. ENT/MOUTH: Normal dentition. Normal oral moisture with no central cyanosis. NECK: Trachea midline. Thyroid not enlarged. Jugular veins did not appear to be elevated. RESPIRATORY: Slightly increased anteroposterior chest diameter with normal chest expansion. Large pendulous breasts. Good air entry over both lung decker with no abnormal pulmonary adventitious sounds. CARDIOVASCULAR: Apical impulse nonpalpable. Heart sounds somewhat distant but normal respiratory splitting of S2-S4, but no S3 gallop. Has a soft systolic ejection murmur over the left lower sternal border radiating to the right base, but no diastolic murmur. Normal carotid upstrokes and volume without bruit. Upper extremity and pedal pulses were symmetrical and normal. Abdominal aorta and femoral pulses were not palpable because of obesity. No abdominal bruit. Has no more than plus/minus pitting distal lower legs. No varicose veins. EXTREMITIES: No clubbing peripheral cyanosis or splinter hemorrhages. GI: Obese, soft, nontender with large lower abdominal pannus. Well-healed esophagectomy scar in the epigastric region. No palpable mass or organomegaly. Rectal examination not indicated. MUSCULOSKELETAL: Gait was not currently assessed. No obvious joint deformity. Muscular strength and tone appear to be normal. Normal spine curvature. SKIN: No current pallor or icterus. NEURO/PSYCH: Bright, alert and oriented, gave a lucid history. Eye, facial, extremity movements were normal. No abnormal movements. INVESTIGATIONS: Chest x-ray: Portable upright chest x-ray at the time of her admission was reviewed independently and showed normal appearing heart size for this technique. Slightly unfolded thoracic aorta, but normal pulmonary vasculature. No infiltrate or pleural effusion. EKGs: Admission study June 12, 2019 showed sinus rhythm at 77 bpm with isolated PAC, but was remarkably normal otherwise. A followup tracing June 15, 2019 at 8:44 p.m. was read as ectopic atrial rhythm with moderate T-wave abnormality and lateral ischemia and by the interpreting physician as atrial flutter with controlled ventricular response. I reviewed this study myself and unfortunately there was baseline artifact, but the patient was actually in a sinus rhythm at 76 beats per minute and there was no repolarization change. Blood work today showed a hemoglobin of 11.1 with slightly reduced MCHC, but otherwise normal red blood cell indices. White blood cell count was normal, platelet count was normal. Chemistry this morning showed electrolyte balance with potassium 4.0, BUN 11, creatinine 0.8, glucose was 95. Serum calcium 8.5. As mentioned, serial troponin I levels were negative. A fasting lipid profile June 15, 2019 showed a total cholesterol 142, LDL 71, HDL 48, total/HDL ratio of 3.0, triglyceride 114. Ultra sensitive TSH April 2018 was normal. Admission serum iron was remarkably normal, but serum ferritin level was markedly abnormal only 6. Has received iron transfusion parenterally. A blood culture was negative. Endometrial curettage pathology specimen showed simple endometrial hyperplasia with proliferative endometrium. IMPRESSION/PLAN: 1. Preoperative cardiac examination: We anticipate the patient will tolerate the planned laparoscopic hysterectomy under general anesthesia without significant difficulty as long as her respiratory status is closely monitored in light of her history of obstructive sleep apnea. No special measures would be deemed necessary beyond standard perioperative EKG monitoring. 2. Paroxysmal atrial flutter/fibrillation: Frustratingly, it would appear that her EKG June 15, 2019 was misinterpreted because of baseline artifact. Other than this baseline artifact, the appearance was exactly the same as her tracing June 12, 2019. She clearly does have a history of paroxysmal atrial flutter/fibrillation; but interestingly on her combination digoxin and diltiazem, has never had a rapid ventricular response. 30-day event monitor showed very infrequent PACs, one atrial triplet and no atrial tachycardia over a course of 30 days. Her reported symptoms of palpitations, dyspnea and chest pain did not correlate with any rhythm disturbance. 3. Chest pain: The patient has a history of Sj gren syndrome and gastroesophageal problems, is on omeprazole. Cardiac catheterization April 2018 showed pristine normal coronary arteries. Despite her somewhat prolonged bout of chest tightness year, serial troponin I levels were negative. 4. Heart failure (diastolic dysfunction/chronic): Has had decompensation on only one occasion triggered by her atrial flutter/fibrillation with rapid ventricular response of over 2018. Has had considerably less effort dyspnea having lost weight. No other symptoms or signs of congestion. She is on extremely low dose Lasix by mouth daily. Certainly appears compensated with recent chemistry confirming electrolyte balance and normal in function. Her chest x-ray shows clear lung decker and she tolerated receiving 7 units of packed red blood cells without problem. 5. Hypertensive heart disease (benign with heart failure): Current blood pressure would be considered well-controlled on her combination diltiazem, lisinopril and low-dose Lasix. Renal function and chemistry electrolytes were normal. 6. BMI of 41/obstructive sleep apnea: Her dependent edema is considerably improved with a weight loss, but was never believed to be related to right heart failure. Has had a mild, even in time of her decompensation, had only mild pulmonary hypertension and has never had an elevated estimated central venous pressure. Obviously, I have encouraged her continued low carbohydrate diet, as this has been very successful in her losing weight. In light of the patient's anxiety, prior history of atrial fibrillation, currently off oral anticoagulant therapy because of her ongoing vaginal bleeding and her intermittent chest pain, we have recommended transferring her to a telemetry unit until she is able to be restarted on her Eliquis oral anticoagulation postoperatively. We will continue to follow her with you closely and appreciate the opportunity to participate in her care. Best regards,
[2019-06-19 03:52] VITALS: BP 121/60
[2019-06-19] MEDS: LEVOTHYROXINE 25MCG TABLET (0.025MG) PO SCH (05:29)
[2019-06-19] MEDS: LEVOTHYROXINE 150MCG TABLET (0.15MG) PO SCH (05:29)
[2019-06-19 05:57] LABS: BASO # 0.1 10^3/uL (0.0-0.2); BASO % 0.7 % (0.0-1.0); EOS # 0.3 10^3/uL (0.0-0.5); EOS % 3.5 % (0.0-3.0); HEMATOCRIT 32.4 % (36.0-47.0); HEMOGLOBIN 10.5 g/dl (12.0-15.5); LYMPH # 2.1 10^3/uL (1.5-5.0); LYMPH % 29.4 % (24.0-44.0); MEAN CORPUSCULAR HEMOGLOBIN 28.2 pg (27.0-33.0); MEAN CORPUSCULAR HGB CONC 32.4 g/dl (32.0-36.5); MEAN CORPUSCULAR VOLUME 87.1 fl (80.0-96.0); MONO # 0.6 10^3/uL (0.0-0.8); MONO % 8.1 % (0.0-5.0); NEUTROPHILS % 56.7 % (36.0-66.0); PLATELET COUNT, AUTOMATED 227 10^3/uL (150-450); RED BLOOD COUNT 3.72 10^6/uL (4.00-5.40); WHITE BLOOD COUNT 7.1 10^3/uL (4.0-10.0)
[2019-06-19 06:12] LABS: BLOOD UREA NITROGEN 11 MG/DL (7-18); CALCIUM LEVEL 8.5 MG/DL (8.5-10.1); CARBON DIOXIDE LEVEL 25 MEQ/L (21-32); CHLORIDE LEVEL 108 MEQ/L (98-107); CREATININE FOR GFR 0.76 MG/DL (0.55-1.30); GLOMERULAR FILTRATION RATE > 60.0 (>58); GLUCOSE, FASTING 88 MG/DL (70-100); SODIUM LEVEL 139 MEQ/L (136-145)
[2019-06-19] MEDS ORDERED: NS 1,000 ML IV SCH (07:41)
[2019-06-19 08:00] VITALS: BP 120/68
[2019-06-19] MEDS: HYDROXYCHLOROQUINE 200 MG TAB PO SCH ×2 (08:59→20:57)
[2019-06-19] MEDS: FUROSEMIDE 20 MG TAB PO SCH (08:59)
[2019-06-19] MEDS: FERROUS SULFATE 325MG TAB PO SCH ×2 (09:00→20:57)
[2019-06-19] MEDS: GABAPENTIN 300 MG CAP PO SCH ×4 (09:00→20:57)
[2019-06-19] MEDS: LISINOPRIL 10 MG TAB PO SCH (09:00)
[2019-06-19] MEDS: DIGOXIN 0.25 MG TAB PO SCH (09:00)
[2019-06-19] MEDS: medroxyPROGESTERone 5MG TABLET PO SCH (09:03)
[2019-06-19 12:00] VITALS: BP 121/59
[2019-06-19 16:00] VITALS: BP 112/55
[2019-06-19 16:30] VITALS: BP_SYST 114; BP_SYST 119; BP_SYST 126; BP_DIAS 58; BP_DIAS 60; BP_DIAS 61
[2019-06-19] MEDS: MAGNESIUM OXIDE 400 MG TAB (MAG-OX) PO SCH (17:43)
[2019-06-19] MEDS: MONTELUKAST 10 MG TAB PO SCH (17:43)
[2019-06-19 20:00] VITALS: BP 127/76
--- NOTE | 2019-06-19 22:30 | IPNPDOC ---
Date Seen The patient was seen on 06/19/19. Progress Note SUBJECTIVE: Patient had no o/n events, still spotting. She denies any lightheaded, headaches, changes in vision, chest pain, shortness of breath, fatigue. Plan for hysterectomy on 06/20/2019. OBJECTIVE PHYSICAL EXAMINATION: VITAL SIGNS: Please see below. GENERAL: No distress HEENT: Normocephalic, atraumatic, moist mucous membranes, no pallor NECK: Supple CARDIOVASCULAR EXAMINATION: S1, S2 RESPIRATORY EXAMINATION: CTAB ABDOMINAL EXAMINATION: Soft, nontender, nondistended, positive bowel sounds EXTREMITIES: trace edema SKIN: No rash NEUROLOGICAL EXAMINATION: Alert and oriented 3, no focal deficits PSYCHIATRIC EXAMINATION: Calm and cooperative, appropriate affect LABORATORY DATA, IMAGING STUDIES, MICROBIOLOGY: Please see below. DVT prophylaxis ordered?: yes ASSESSMENT AND PLAN: Pt is a 48 yoF with PMH of small fiber neuropathy, vitiligo, Sjogren syndrome, hypothyroidism, unspecified type of CHF, atrial fibrillation, & nonobstructive CAD was admitted for management of acute anemia due to abnormal uterine bleeding. #AUB/DUB: s/p D & C on 06/14/19, plan for hysterectomy 06/20, cardiology cleared pt, dc statin and eliquis (for A. 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 home meds #CHF, type unknown: hold home lasix and lisinopril #Hypothyroidism: continue home meds #Sjgren syndrome/ autoimmunce syndrome: continue home gabapentin & hydroxychloroquine #Chronic hypertension: continue home meds #Asthma: continue home meds #Morbid Obesity: supportive care, outpt f/u DVT prophylaxis with SCDs. Full code VS, I&O, 24H, Fishbone Vital Signs/I&O Vital Signs Date Time Temp Pulse Resp B/P (MAP) Pulse Ox O2 Delivery O2 Flow Rate FiO2 06/19/19 20:58 84 127/76 06/19/19 20:00 97.8 48 96 Room Air I&O- Last 24 Hours up to 6 AM0 06/19/19 05:59 Intake Total 1140 ml Output Total 1300 ml Balance -160 ml Laboratory Data 24H LABS Laboratory Tests 2 06/19/19 05:20: Immature Granulocyte % (Auto) 1.6, Neutrophils (%) (Auto) 56.7, Lymphocytes (%) (Auto) 29.4, Monocytes (%) (Auto) 8.1H, Eosinophils (%) (Auto) 3.5H, Basophils (%) (Auto) 0.7, Neutrophils # (Auto) 4.0, Lymphocytes # (Auto) 2.1, Monocytes # (Auto) 0.6, Eosinophils # (Auto) 0.3, Basophils # (Auto) 0.1, Nucleated Red Blood Cells % (auto) 0.0, Anion Gap 6L, Glomerular Filtration Rate > 60.0, Calcium Level 8.5 CBC/BMP Laboratory Tests 06/19/19 05:20 Microbiology Microbiology 06/12/19 Blood Culture - Final, Complete NO GROWTH AFTER 5 DAYS DAVID QUINTERO MD Jun 19, 2019 22:30
[2019-06-20] VITALS (10 sets, daily range): BP systolic 109–139; BP diastolic 55–73
[2019-06-20 05:20] LABS: HEMATOCRIT 34.7 % (36.0-47.0); MEAN CORPUSCULAR HEMOGLOBIN 28.1 pg (27.0-33.0); MEAN CORPUSCULAR HGB CONC 31.7 g/dl (32.0-36.5); MEAN CORPUSCULAR VOLUME 88.7 fl (80.0-96.0); PLATELET COUNT, AUTOMATED 232 10^3/uL (150-450); RED BLOOD COUNT 3.91 10^6/uL (4.00-5.40); WHITE BLOOD COUNT 7.1 10^3/uL (4.0-10.0)
[2019-06-20 05:47] LABS: BLOOD UREA NITROGEN 11 MG/DL (7-18); CALCIUM LEVEL 8.6 MG/DL (8.5-10.1); CARBON DIOXIDE LEVEL 27 MEQ/L (21-32); CHLORIDE LEVEL 106 MEQ/L (98-107); CREATININE FOR GFR 0.76 MG/DL (0.55-1.30); GLOMERULAR FILTRATION RATE > 60.0 (>58); GLUCOSE, FASTING 87 MG/DL (70-100); POTASSIUM SERUM 3.9 MEQ/L (3.5-5.1); SODIUM LEVEL 138 MEQ/L (136-145)
[2019-06-20] MEDS ORDERED: ceFAZolin 1GM INJ (J0690 PER 500MG) As Ordered ONE ×2 (07:08→07:12)
[2019-06-20] MEDS ORDERED: BUPIVACAINE HCL 0.5% 10 ML VIAL As Ordered ONE (07:11)
[2019-06-20] MEDS ORDERED: METHYLENE BLUE 0.5% (5MG/ML) 10 ML AMP (PROVAYBLUE)(Q9968 PER 1MG) As Ordered ONE (07:12)
[2019-06-20] MEDS ORDERED: BUPIVACAINE HCL 0.25% 10 ML VIAL As Ordered ONE (07:19)
--- NOTE | 2019-06-20 07:21 | IPNPDOC ---
Date Seen The patient was seen on 06/20/19. Progress Note SUBJECTIVE: Patient had no overnight events, tolerated hysterectomy, spoke with purchasing expeditor. Hemoglobin today 11. Reports vaginal clots while voiding post surgery, denies any lightheadedness or dizziness. OBJECTIVE PHYSICAL EXAMINATION: VITAL SIGNS: Please see below. GENERAL: No distress HEENT: Normocephalic, atraumatic, moist mucous membranes, slight pallor NECK: Supple CARDIOVASCULAR EXAMINATION: S1, S2 RESPIRATORY EXAMINATION: CTAB ABDOMINAL EXAMINATION: Soft, incisions appear to be clean, dry, intact, positive bowel sounds EXTREMITIES: trace edema SKIN: No rash NEUROLOGICAL EXAMINATION: Alert and oriented 3, no focal deficits PSYCHIATRIC EXAMINATION: Calm and cooperative, appropriate affect LABORATORY DATA, IMAGING STUDIES, MICROBIOLOGY: Please see below. DVT prophylaxis ordered?: yes ASSESSMENT AND PLAN: Pt is a 48 yoF with PMH of small fiber neuropathy, vitiligo, Sjogren syndrome, hypothyroidism, unspecified type of CHF, atrial fi brillation, & nonobstructive CAD was admitted for management of acute anemia due to abnormal uterine bleeding. #AUB/DUB: s/p D & C on 06/14/19 POD#6, lap hysterectomy (06/20/19) POD#0, per cardiology, dc statin and eliquis (for A. fib), f/u with cardiology regarding resuming cardiology medications including apixaban #anemia: due to dysfunctional uterine bleeding: has received 6 Units of PRBCs #Atrial fibrillation: Hold Eliquis, continue digoxin; will discuss with cardiology when to restart Eliquis #Nonobstructive CAD: cont. home meds #CHF, type unknown: hold home lasix and lisinopril #Hypothyroidism: continue home meds #Sjgren syndrome/ autoimmune syndrome: continue home gabapentin & hyd roxychloroquine #Chronic hypertension: continue home meds #Asthma: continue home meds #Morbid Obesity: supportive care, outpt f/u DVT prophylaxis with SCDs. Full code possible dc home tomorrow 06/21/19 VS, I&O, 24H, Fishbone Vital Signs/I&O Vital Signs Date Time Temp Pulse Resp B/P (MAP) Pulse Ox O2 Delivery O2 Flow Rate FiO2 06/20/19 04:00 98.2 66 16 116/68 (84) 96 Room Air I&O- Last 24 Hours up to 6 AM 06/20/19 06:00 Intake Total 1080 ml Output Total 3650 ml Balance -2570 ml Laboratory Data 24H LABS Laboratory Tests 2 06/20/19 04:52: Nucleated Red Blood Cells % (auto) 0.0, Anion Gap 5L, Glomerular Filtration Rate > 60.0, Calcium Level 8.6 CBC/BMP Laboratory Tests 06/20/19 04:52 Microbiology Microbiology 06/12/19 Blood Culture - Final, Complete NO GROWTH AFTER 5 DAYS DAVID QUINTERO MD Jun 20, 2019 07:21
[2019-06-20] MEDS ORDERED: LR 1,000 ML IV SCH ×3 (07:30→10:15)
[2019-06-20] MEDS ORDERED: ceFAZolin 2 GM/D5W 50 ML IV BAG (J0690 PER 500MG) As Ordered ONE (07:34)
[2019-06-20] MEDS ORDERED: NS 1,000 ML IV SCH (07:41)
[2019-06-20] MEDS ORDERED: ceFAZolin SOD 2 GM in IV 1 EA IV ONE (07:45)
[2019-06-20] MEDS: GABAPENTIN 300 MG CAP PO SCH ×4 (08:00→20:50)
[2019-06-20] MEDS ORDERED: ACETAMINOPHEN 1000MG 100ML IV BTL (OFIRMEV) (J0131 PER 10MG) As Ordered ONE (08:03)
[2019-06-20] MEDS ORDERED: fentaNYL 250 MCG/5 ML INJECTION (J3010) As Ordered ONE (08:03)
[2019-06-20] MEDS ORDERED: SUCCINYLCHOLINE 100 MG/5 ML SYRINGE (J0330) As Ordered ONE (08:03)
[2019-06-20] MEDS ORDERED: ROCURONIUM BROMIDE 50 MG/5 ML VIAL As Ordered ONE ×2 (08:03→08:52)
[2019-06-20] MEDS ORDERED: DESFLURANE 240 ML INHALANT As Ordered ONE (08:03)
[2019-06-20] MEDS ORDERED: LIDOCAINE 2% INJ 100 MG/5 ML SDV (FOR ANES.) As Ordered ONE (08:03)
[2019-06-20] MEDS ORDERED: SUGAMMADEX SODIUM 500 MG/5 ML VIAL (BRIDION) As Ordered ONE (08:03)
[2019-06-20] MEDS ORDERED: ONDANSETRON 4MG/2ML VIAL (J2405) As Ordered ONE (08:03)
[2019-06-20] MEDS ORDERED: PROPOFOL 200 MG/20 ML VIAL As Ordered ONE (08:03)
[2019-06-20] MEDS ORDERED: dexameTHASONE 4 MG/ML 1ML VIAL (J1100) As Ordered ONE (08:03)
[2019-06-20] MEDS ORDERED: MIDAZOLAM INJ 2 MG/2 ML VIAL (J2250) As Ordered ONE (08:03)
[2019-06-20] MEDS ORDERED: METOCLOPRAMIDE INJ 10MG/2ML VIAL (J2765) As Ordered ONE (08:03)
[2019-06-20] MEDS: PERCOCET 5MG/325MG TAB PO PRN ×4 (09:40→20:51)
[2019-06-20] MEDS ORDERED: fentaNYL 100 MCG/2 ML INJECTION (J3010) As Ordered ONE (09:40)
[2019-06-20] MEDS: fentaNYL 100 MCG/2 ML INJECTION (J3010) IV PRN ×4 (09:40→09:55)
[2019-06-20] MEDS ORDERED: PERCOCET 5MG/325MG TAB As Ordered ONE ×2 (09:40→10:06)
[2019-06-20] MEDS ORDERED: ONDANSETRON 4MG/2ML VIAL (J2405) IV PRN ×2 (10:00→10:15)
[2019-06-20] MEDS ORDERED: METOCLOPRAMIDE INJ 10MG/2ML VIAL (J2765) IV PRN (10:00)
[2019-06-20] MEDS ORDERED: KETOROLAC 30 MG/ML VIAL (J1885) IV PRN (10:00)
[2019-06-20] MEDS ORDERED: MORPHINE 4 MG/ML 1ML VIAL/SYRINGE (J2270) IV PRN (10:15)
[2019-06-20] MEDS ORDERED: PERCOCET 5MG/325MG TAB PO PRN (10:15)
[2019-06-20] MEDS ORDERED: OXYC1TAB23 PO (10:46)
[2019-06-20] MEDS: LEVOTHYROXINE 150MCG TABLET (0.15MG) PO SCH (12:17)
[2019-06-20] MEDS: LEVOTHYROXINE 25MCG TABLET (0.025MG) PO SCH (12:17)
[2019-06-20] MEDS: LISINOPRIL 10 MG TAB PO SCH (12:18)
[2019-06-20] MEDS: FUROSEMIDE 20 MG TAB PO SCH (12:18)
[2019-06-20] MEDS: FERROUS SULFATE 325MG TAB PO SCH ×2 (12:18→20:50)
[2019-06-20] MEDS: HYDROXYCHLOROQUINE 200 MG TAB PO SCH ×2 (12:21→20:49)
[2019-06-20] MEDS: DIGOXIN 0.25 MG TAB PO SCH (12:22)
[2019-06-20] MEDS: MAGNESIUM OXIDE 400 MG TAB (MAG-OX) PO SCH (17:05)
[2019-06-20] MEDS: MONTELUKAST 10 MG TAB PO SCH (17:05)
[2019-06-20] MEDS: DOCUSATE SODIUM 100 MG CAP PO SCH (20:49)
[2019-06-21 04:00] VITALS: BP 118/72
[2019-06-21] MEDS: PERCOCET 5MG/325MG TAB PO PRN ×2 (04:05→14:03)
[2019-06-21 05:36] LABS: HEMATOCRIT 33.1 % (36.0-47.0); HEMOGLOBIN 10.4 g/dl (12.0-15.5); MEAN CORPUSCULAR HEMOGLOBIN 27.7 pg (27.0-33.0); MEAN CORPUSCULAR HGB CONC 31.4 g/dl (32.0-36.5); MEAN CORPUSCULAR VOLUME 88.3 fl (80.0-96.0); PLATELET COUNT, AUTOMATED 275 10^3/uL (150-450); RED BLOOD COUNT 3.75 10^6/uL (4.00-5.40); WHITE BLOOD COUNT 11.4 10^3/uL (4.0-10.0)
[2019-06-21 06:00] LABS: BLOOD UREA NITROGEN 11 MG/DL (7-18); CALCIUM LEVEL 8.8 MG/DL (8.5-10.1); CARBON DIOXIDE LEVEL 26 MEQ/L (21-32); CHLORIDE LEVEL 108 MEQ/L (98-107); CREATININE FOR GFR 0.64 MG/DL (0.55-1.30); GLOMERULAR FILTRATION RATE > 60.0 (>58); GLUCOSE, FASTING 111 MG/DL (70-100); POTASSIUM SERUM 4.3 MEQ/L (3.5-5.1); SODIUM LEVEL 138 MEQ/L (136-145)
[2019-06-21] MEDS: LEVOTHYROXINE 150MCG TABLET (0.15MG) PO SCH (06:08)
[2019-06-21] MEDS: LEVOTHYROXINE 25MCG TABLET (0.025MG) PO SCH (06:08)
--- NOTE | 2019-06-21 07:21 | DS.PDOC ---
Discharge Summary General Date of Admission Jun 12, 2019 at 01:35 Date of Discharge 06/21/19 Discharge Summary PROCEDURES PERFORMED DURING STAY: D&C and hysterectomy ADMITTING DIAGNOSES: 1. Symptomatically. Anemia. DISCHARGE DIAGNOSES: 1. AUB/DUB. COMPLICATIONS/CHIEF COMPLAINT: Dub; Symptomatic Anemia. HISTORY OF PRESENT ILLNESS & HOSPITAL COURSE:: Pt is a 48 yoF with PMH of small fiber neuropathy, vitiligo, Sjogren syndrome, hypothyroidism, unspecified type of CHF, atrial fibrillation, & nonobstructive CAD was admitted for management of acute anemia due to abnormal uterine bleeding. . She did require blood transfusions during hospitalization. Due to AUB/DUB pt had D & C on 06/14/19 POD#7, and subsequent lap hysterectomy (06/20/19) POD#1. Hb stable. Discussed with cardiology resume home meds at [facility]. Discussed with national account manager, id home with 2 week follow-up. Discharge, patient denies any lightheadedness, dizziness, chest pain, shortness of breath, nausea, vomiting, abdominal pain, reports improvement in vaginal bleeding, improvement in lower extremity swelling. All questions were answered. DISCHARGE MEDICATIONS: Please see below. ALLERGIES: Please see below. PHYSICAL EXAMINATION ON DISCHARGE: VITAL SIGNS: Please see below. GENERAL: No distress HEENT: Normocephalic, atraumatic, moist mucous membranes, no pallor NECK: Supple CARDIOVASCULAR EXAMINATION: S1, S2 RESPIRATORY EXAMINATION: CTAB ABDOMINAL EXAMINATION: Soft, incisions appear to be clean, dry, intact, positive bowel sounds EXTREMITIES: trace edema SKIN: No rash NEUROLOGICAL EXAMINATION: Alert and oriented 3, no focal deficits PSYCHIATRIC EXAMINATION: Calm and cooperative, appropriate affect LABORATORY DATA: Please see below. PROGNOSIS: good ACTIVITY: As tolerated. DIET: heart healthy DISCHARGE PLAN: home DISPOSITION: home. DISCHARGE INSTRUCTIONS: 1. see above. ITEMS TO FOLLOWUP ON ON OUTPATIENT: 1. see above. DISCHARGE CONDITION: Stable. TIME SPENT ON DISCHARGE: 35 minutes. Vital Signs/I&Os Vital Signs Date Time Temp Pulse Resp B/P (MAP) Pulse Ox O2 Delivery O2 Flow Rate FiO2 06/21/19 04:40 14 06/21/19 04:00 97.9 71 118/72 (87) 95 Room Air 06/20/19 09:22 2 I&O- Last 24 Hours up to 6 AM 06/21/19 06:00 Intake Total 2440 ml Output Total 2300 ml Balance 140 ml Laboratory Data Labs 24H Laboratory Tests 2 06/21/19 04:53: Nucleated Red Blood Cells % (auto) 0.0, Anion Gap 4L, Glomerular Filtration Rate > 60.0, Calcium Level 8.8 CBC/BMP Laboratory Tests 06/21/19 04:53 Microbiology Microbiology 06/12/19 Blood Culture - Final, Complete NO GROWTH AFTER 5 DAYS Discharge Medications Scheduled Apixaban (Eliquis) 5 Mg Tablet, 5 MG PO BID, (Reported) Cholecalciferol (Vitamin D3) (Vitamin D3) 400 Unit Capsule, 400 UNIT PO DAILY, (Reported) LUNCHTIME Digoxin (Digoxin) 250 Mcg Tablet, 250 MCG PO DAILY, (Reported) Diltiazem HCl (Diltiazem 12Hr ER) 90 Mg Cap.er.12h, 90 MG PO DAILY, (Reported) LUNCHTIME Docusate Sodium (Docusate Sodium) 100 Mg Capsule, 100 MG PO BID prn for constipation Furosemide (Furosemide) 20 Mg Tablet, 10 MG PO DAILY, (Reported) Gabapentin (Gabapentin) 300 Mg Capsule, 300 MG PO TID, (Reported) BREAKFAST, LUNCH AND DINNER Gabapentin (Gabapentin) 300 Mg Capsule, 600 MG PO QHS, (Reported) Hydroxychloroquine Sulfate (Hydroxychloroquine Sulfate) 200 Mg Tablet, 200 MG PO BID, (Reported) Levothyroxine Sodium (Synthroid) 175 Mcg Tablet, 175 MCG PO DAILY, (Reported) Lisinopril (Lisinopril) 10 Mg Tablet, 10 MG PO DAILY, (Reported) Magnesium Oxide (Magnesium Oxide) 400 Mg Tablet, 400 MG PO QPM, (Reported) DINNERTIME Montelukast Sodium (Singulair) 10 Mg Tablet, 10 MG PO QPM, (Reported) DINNERTIME Scheduled PRN Acetaminophen (Tylenol) 325 Mg Tablet, 325 MG PO Q4H PRN for PAIN, (Reported) Albuterol Sulfate (Proair Hfa) 8.5 Gm Hfa.aer.ad, 2 PUFF INH QID PRN for SHORTNESS OF BREATH, (Reported) Oxycodone HCl/Acetaminophen (Oxycodone-Acetaminophen 5-325) 1 Each Tablet, 1 TAB PO TIDP PRN for pain Polyvinyl Alcohol (Artificial Tears) 15 Ml Drops, 2 DROP OU QID PRN for DRY EYES, (Reported) Allergies Coded Allergies: Sulfa (Sulfonamide Antibiotics) (Verified Allergy, Intermediate, Hives, 06/11/19) aspirin (Verified Allergy, Intermediate, hives, 06/11/19) DAVID QUINTERO MD Jun 21, 2019 07:21
[2019-06-21 07:56] VITALS: BP 105/53
[2019-06-21 08:38] VITALS: BP 120/64
[2019-06-21] MEDS: GABAPENTIN 300 MG CAP PO SCH ×2 (08:38→14:03)
[2019-06-21] MEDS: FUROSEMIDE 20 MG TAB PO SCH (08:38)
[2019-06-21] MEDS: DIGOXIN 0.25 MG TAB PO SCH (08:38)
[2019-06-21] MEDS: LISINOPRIL 10 MG TAB PO SCH (08:38)
[2019-06-21] MEDS: DOCUSATE SODIUM 100 MG CAP PO SCH (08:38)
[2019-06-21] MEDS: HYDROXYCHLOROQUINE 200 MG TAB PO SCH (08:39)
[2019-06-21] MEDS: FERROUS SULFATE 325MG TAB PO SCH (08:39)
[2019-06-21] MEDS ORDERED: APIXABAN 5 MG TAB (ELIQUIS) PO SCH (09:00)
[2019-06-21] MEDS ORDERED: DIGOXIN 0.25 MG TAB PO SCH (09:00)
[2019-06-21] MEDS ORDERED: DOCU100C16 PO (11:33)
--- NOTE | 2019-06-21 17:11 | RO ---
DATE OF PROCEDURE: 06/20/2019 PREPROCEDURE DIAGNOSIS: Menorrhagia, severe anemia, endometrial hyperplasia. POSTPROCEDURE DIAGNOSIS: Menorrhagia, severe anemia, endometrial hyperplasia. PROCEDURE: Robotic-assisted laparoscopic hysterectomy and bilateral salpingo-oophorectomy. SURGEON: Hector Horn MD METAL CUT OFF SAW OPERATOR: ANESTHESIA: General endotracheal. ESTIMATED BLOOD LOSS: 150 mL. URINE OUTPUT: 100 mL. FINDINGS: Normal uterus, fallopian tube and ovaries. Omental adhesions to midline and the upper abdomen. DESCRIPTION OF PROCEDURE: The patient was taken to the operating room where general endotracheal anesthesia was induced. She was prepped and draped in a sterile fashion in the dorsal lithotomy position. A Gamino catheter was placed. A VCare uterine manipulator was placed. A periumbilical incision was made with a scalpel. Veress needle was placed through the incision while tenting up on the skin of the abdomen. Intraabdominal location of the Veress needle was assessed with the use of a saline-filled syringe. Pneumoperitoneum was created. The Veress needle was removed. An 8 mm trocar using Telepathy was inserted through this incision. Three 8 mm suprapubic ports were placed under direct visualization. The patient was placed in Trendelenburg position. Da Tammy surgical robot was docked to the ports. Using the vessel sealer and the fenestrated bipolar instrument, the infundibulopelvic (IP) ligaments, broad ligament attachments, and round ligaments were coagulated and incised. The anterior and posterior leaves of the broad ligament were , a bladder flap was created. The uterine vessels were coagulated and incised. A colpotomy was created the upper vagina at the level of the VCare cup using monopolar Endo Grady. This was extended circumferentially around the vagina. Specimen containing the uterus, cervix, and both fallopian tubes and ovaries was removed through the vagina. The vaginal cuff was closed with #1 V-Loc suture in a running fashion. The pelvis was irrigated with good hemostasis noted. The Gamino catheter was removed. Cystoscopy was performed using a 70-degree cystoscope. Bilateral ureteral jets were identified. There was no evidence of injury to the bladder. Incidental finding was made of a 1 cm anterior vaginal wall laceration. This probably occurred during insertion of the uterine manipulator. This was repaired with interrupted suture of #3-0 Vicryl. Good hemostasis was noted. All instruments were removed. Sponge, instrument, and needle counts were correct. The skin was closed with #4-0 Monocryl subcuticular sutures. The patient was extubated and went to the recovery room in stable condition.
== END 2019-06-21 15:07 | disposition home or self-care (01) | DRG 742 ==
LOC: M ED 23:39 → M ED INP 06-12 01:35 → M PCU 06-12 03:53 → M MS4PR 06-12 16:36 → M PCU 06-15 22:05 → M MS4PR 06-16 23:00 → M PCU 06-18 19:18
PROVIDERS: ADMIT Internal Medicine; ATTEND Family Medicine
PROC: 30233N1 Transfusion of Nonautologous Red Blood Cells into Peripheral Vein, Percutaneous Approach (ICD-10-PCS; 2019-06-12)
PROC: 0UJD8ZZ Inspection of Uterus and Cervix, Via Natural or Artificial Opening Endoscopic (ICD-10-PCS; 2019-06-14)
PROC: 0UT24ZZ Resection of Bilateral Ovaries, Percutaneous Endoscopic Approach (ICD-10-PCS; 2019-06-20)
PROC: 0UTC4ZZ Resection of Cervix, Percutaneous Endoscopic Approach (ICD-10-PCS; 2019-06-20)
PROC: 0UT74ZZ Resection of Bilateral Fallopian Tubes, Percutaneous Endoscopic Approach (ICD-10-PCS; 2019-06-20)
PROC: 8E0W4CZ Robotic Assisted Procedure of Trunk Region, Percutaneous Endoscopic Approach (ICD-10-PCS; 2019-06-20)
PROC: 0UT94ZZ Resection of Uterus, Percutaneous Endoscopic Approach (ICD-10-PCS; principal; 2019-06-20 07:30)
DX: N92.0 Excessive and frequent menstruation with regular cycle (principal); Z68.41 Body mass index [BMI] 40.0-44.9, adult; I50.32 Chronic diastolic (congestive) heart failure; D62 Acute posthemorrhagic anemia; I48.0 Paroxysmal atrial fibrillation; I25.10 Atherosclerotic heart disease of native coronary artery without angina pectoris; E03.9 Hypothyroidism, unspecified; M35.00 Sjogren syndrome, unspecified; Z79.899 Other long term (current) drug therapy; Z88.2 Allergy status to sulfonamides; Z88.6 Allergy status to analgesic agent; G47.33 Obstructive sleep apnea (adult) (pediatric); E66.01 Morbid (severe) obesity due to excess calories; J45.909 Unspecified asthma, uncomplicated; I11.0 Hypertensive heart disease with heart failure; D25.1 Intramural leiomyoma of uterus; N83.01 Follicular cyst of right ovary; N83.02 Follicular cyst of left ovary; N80.0 Endometriosis of uterus

== ENCOUNTER 2019-09-02 13:32 | Emergency (ER) | payer MEDICARE ==
[~2019-09-02] VITALS: Ht 165.1 cm; Wt 108.8 kg
[~2019-09-02 13:32] MED LIST changes: -LEVO150T7
[2019-09-02] MEDS ORDERED: LEVO150T7 (13:54)
[2019-09-02 14:02] LABS: BASO % 0.5 % (0.0-1.0); EOS # 0.1 10^3/uL (0.0-0.5); EOS % 1.6 % (0.0-3.0); HEMATOCRIT 43.3 % (36.0-47.0); HEMOGLOBIN 13.4 g/dl (12.0-15.5); LYMPH # 1.5 10^3/uL (1.5-5.0); LYMPH % 20.1 % (24.0-44.0); MEAN CORPUSCULAR HGB CONC 30.9 g/dl (32.0-36.5); MEAN CORPUSCULAR VOLUME 83.9 fl (80.0-96.0); MONO # 0.6 10^3/uL (0.0-0.8); MONO % 8.2 % (0.0-5.0); NEUTROPHILS # 5.2 10^3/uL (1.5-8.5); NEUTROPHILS % 69.2 % (36.0-66.0); PLATELET COUNT, AUTOMATED 313 10^3/uL (150-450); RED BLOOD COUNT 5.16 10^6/uL (4.00-5.40); WHITE BLOOD COUNT 7.5 10^3/uL (4.0-10.0)
[2019-09-02 14:15] LABS: PROTHROMBIN TIME 12.9 SECONDS (11.8-14.0)
[2019-09-02 14:16] LABS: PARTIAL THROMBOPLASTIN TIME 26.6 SECONDS (25.0-38.4)
[2019-09-02 14:29] LABS: ALBUMIN 4.1 GM/DL (3.2-5.2); ALT/SGPT 39 U/L (12-78); BILIRUBIN,DIRECT 0.1 MG/DL (0.0-0.2); BILIRUBIN,TOTAL 0.4 MG/DL (0.2-1.0); BLOOD UREA NITROGEN 12 MG/DL (7-18); CALCIUM LEVEL 9.8 MG/DL (8.5-10.1); CARBON DIOXIDE LEVEL 29 MEQ/L (21-32); CHLORIDE LEVEL 104 MEQ/L (98-107); CK-MB VALUE MASS < 1.0 NG/ML (<3.6); CPK CREATINE PHOSPHOKINASE 75 U/L (26-192); CREATININE FOR GFR 0.73 MG/DL (0.55-1.30); FREE T4 1.38 NG/DL (0.76-1.46); GLOMERULAR FILTRATION RATE > 60.0 (>58); GLUCOSE, FASTING 112 MG/DL (70-100); LIPASE 134 U/L (73-393); MB/CK RELATIVE INDEX 1.33 (< OR =4); POTASSIUM SERUM 4.3 MEQ/L (3.5-5.1); SODIUM LEVEL 139 MEQ/L (136-145); THYROID STIMULATING HORMONE 0.379 uIU/ML (0.358-3.740); TOTAL PROTEIN 7.3 GM/DL (6.4-8.2); TROPONIN I < 0.02 NG/ML (< 0.10)
[2019-09-02 14:35] LABS: HCG, SERUM QUALITATIVE NEGATIVE (NEGATIVE)
[2019-09-02 14:44] LABS: NT-PRO BNP 50 PG/ML (<125)
[2019-09-02] MEDS ORDERED: ACETAMINOPHEN 500 MG TAB PO ONE (15:00)
--- NOTE | 2019-09-02 15:13 | REP ---
Portable chest , 02:45 p.m., single AP view with the patient upright: Comparison is 06/12/2019. The lung decker are clear. The cardiac size is normal. The fede, mediastinum, and skeletal structures are unremarkable. Impression: Negative portable chest. There is no interval change. Electronically Signed by Maynor Grossman MD 09/02/2019 03:04 P
[2019-09-02] MEDS ORDERED: GI COCKTAIL 50ML BTL(HYOSCYAMINE/MAALOX/LIDOCAINE VISCOUS)(1:3:1) PO ONE (15:30)
[2019-09-02] MEDS ORDERED: ISOVUE-370 76% 100ML VIAL (Q9967) As Ordered ONE (17:18)
--- NOTE | 2019-09-02 17:58 | REPVR ---
PROCEDURE INFORMATION: Exam: CT Angiography Chest With Contrast Exam date and time: 09/02/2019 4:49 PM Age: 49 years old Clinical indication: Chest pain; Additional info: Pleuritic chest pain (pe rule out) TECHNIQUE: Imaging protocol: Computed tomographic angiography of the chest with intravenous contrast. 3D rendering: MIP and/or 3D reconstructed images were created by the technologist. Radiation optimization: All CT scans at this facility use at least one of these dose optimization techniques: automated exposure control; mA and/or kV adjustment per patient size (includes targeted exams where dose is matched to clinical indication); or iterative reconstruction. Contrast material: ISOVUE 370; Contrast volume: 75 ml; Contrast route: IV; COMPARISON: CR PORTABLE CHEST X-RAY 09/02/2019 2:44 PM FINDINGS: Pulmonary arteries: Normal. No pulmonary emboli. Aorta: Unremarkable. No aortic aneurysm. No aortic dissection. Lungs: Unremarkable. No consolidation. No masses. Pleural space: Unremarkable. No pneumothorax. No pleural effusion. Heart: Unremarkable. No cardiomegaly. No pericardial effusion. Mediastinum: A small hiatal hernia is present. Lymph nodes: Unremarkable. No enlarged lymph nodes. Bones/joints: Unremarkable. No acute fracture. Soft tissues: Unremarkable. IMPRESSION: 1. A small hiatal hernia is present. 2. No pulmonary emboli. 3. No aortic dissection. 4. No acute pulmonary parenchymal abnormalities. Electronically signed by: Balaji Keys On 09/02/2019 17:58:26 PM
[2019-09-02 19:00] VITALS: BP 116/56
[2019-09-02 19:07] LABS: CK-MB VALUE MASS < 1.0 NG/ML (<3.6); CPK CREATINE PHOSPHOKINASE 61 U/L (26-192); MB/CK RELATIVE INDEX 1.64 (< OR =4); TROPONIN I < 0.02 NG/ML (< 0.10)
--- NOTE | 2019-09-02 19:17 | ECGEPIP ---
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
--- NOTE | 2019-09-02 19:20 | ECGEPIP ---
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
== END 2019-09-02 19:29 | disposition home or self-care (01) ==
LOC: M ED 13:32
DX: R07.89 Other chest pain (principal); R06.02 Shortness of breath; I48.91 Unspecified atrial fibrillation; I25.2 Old myocardial infarction; I10 Essential (primary) hypertension; Z79.01 Long term (current) use of anticoagulants; Z79.899 Other long term (current) drug therapy; Z88.2 Allergy status to sulfonamides; Z88.8 Allergy status to other drugs, medicaments and biological substances
CPT/HCPCS: 71045; 71275; 80048; 80076; 82550; 82553; 83690; 83880; 84439; 84443; 84484; 84703; 85025; 85610; 85730; 93005; 93041; 94760; 99285; Q9967

== ENCOUNTER → 2019-09-02 | Outpatient (CLI) | payer MEDICARE ==
[~2019-09-02] MED LIST: ACET-907 PO; ARTIDRO2 OU; CVS400CA PO; DIGO0.253 PO; DOCU100C16 PO; ELIQ5TAB PO; FURO20TA2 PO; GABA-843 PO; GABA-845 PO; HYDR200T3 PO; LEVO150T7; LISI10TA4 PO; MAGN400C2 PO; MAGN400T3 PO; OXYC1TAB23 PO; PLAQ200T4 PO; PROAAER10 INH; SING10TA32 PO; SING4GRA PO; SYNT175T2 PO; [UNRECOGNIZED DRUG - CODE] PO; [UNRECOGNIZED DRUG - REMARK]; [UNRECOGNIZED DRUG - REMARK]
--- NOTE | 2019-09-05 16:51 | REP ---
Digital diagnostic bilateral mammography with CAD, 3-D tomography, and focused left breast sonography. History: Left breast painful lump noted 1 week ago. The patient reports that this has decreased since she noticed it, the lump. Comparison mammography has been retrieved from June 27, 2017 and December 29, 2014. The patient reports a fall after which she noticed the painful lump in the upper outer quadrant. Mammographic findings: A skin marker is affixed to the skin at the site of the palpable lump which is in the upper outer quadrant. Routine views are augmented by magnified focal spot compression views. Breast parenchyma shows heterogeneous increased density in a pattern which may inhibit the sensitivity of mammography. Breast parenchyma is unchanged however in the area of the palpable lump when compared to the prior study. There are normal appearing lymph nodes in each axilla. No mammographic abnormality is noted in the area of the palpable lump. There are disbursed microcalcifications in dense breast stroma particularly on the left breast. This is unchanged. Also noted at approximately the 7 o'clock position in the left breast, there is a well-circumscribed rounded nodule which appears to have been present on the previous CC view from 2017. There are punctate calcifications adjacent to this. The right breast is unremarkable mammographically. Sonographic findings: Heterogeneous fibroglandular background echotexture is seen. There is a 0.7 cm cyst in the left breast at approximately 2 o'clock. No sonographically suspicious finding is seen in the area of the palpable lump. At 7 o'clock in the left breast there is an anechoic 0.3 cm cyst which is felt to account for the mammographic opacity. Impression: BIRADS category 2 benign findings. Clinical follow-up is advised. Repeat screening mammography recommended 1 year. BIRADS 2: BI-RADS/ACR category 2 mammogram. Benign Findings. This mammogram was interpreted with the aid of an FDA-approved computer-aided detection system. The patient states she had a clinical breast exam in July 2019 The patient letter being requested is m#2 This patient's estimated Tyrer-zi lifetime risk assessment for the breast cancer is 10.8 %. Electronically Signed by Terry Mohamud MD 09/05/2019 04:54 P
== END ==
LOC: M RAD 09:32
PROVIDERS: ATTEND Specialist
DX: N60.02 Solitary cyst of left breast (principal); R92.1 Mammographic calcification found on diagnostic imaging of breast
CPT/HCPCS: 76642; 77066; G0279

== ENCOUNTER → 2019-12-26 | Outpatient (CLI) | payer MEDICARE ==
[~2019-12-26] MED LIST changes: -ARTIDRO2 OU; +LEVO150T7; +POLYOPD OU
[2019-12-26 18:35] LABS: BASO # 0.1 10^3/uL (0.0-0.2); BASO % 0.9 % (0.0-1.0); EOS # 0.2 10^3/uL (0.0-0.5); EOS % 2.2 % (0.0-3.0); HEMATOCRIT 42.3 % (36.0-47.0); HEMOGLOBIN 13.5 g/dl (12.0-15.5); LYMPH # 1.6 10^3/uL (1.5-5.0); MEAN CORPUSCULAR HEMOGLOBIN 27.1 pg (27.0-33.0); MEAN CORPUSCULAR HGB CONC 31.9 g/dl (32.0-36.5); MEAN CORPUSCULAR VOLUME 84.8 fl (80.0-96.0); MONO # 0.5 10^3/uL (0.0-0.8); MONO % 5.9 % (0.0-5.0); NEUTROPHILS # 6.3 10^3/uL (1.5-8.5); NEUTROPHILS % 72.5 % (36.0-66.0); PLATELET COUNT, AUTOMATED 307 10^3/uL (150-450); RED BLOOD COUNT 4.99 10^6/uL (4.00-5.40); WHITE BLOOD COUNT 8.7 10^3/uL (4.0-10.0)
[2019-12-26 18:56] LABS: BLOOD UREA NITROGEN 14 MG/DL (7-18); CALCIUM LEVEL 9.8 MG/DL (8.5-10.1); CARBON DIOXIDE LEVEL 29 MEQ/L (21-32); CHLORIDE LEVEL 101 MEQ/L (98-107); CREATININE FOR GFR 0.76 MG/DL (0.55-1.30); GLOMERULAR FILTRATION RATE > 60.0 (>58); GLUCOSE, FASTING 94 MG/DL (70-100); PHOSPHORUS LEVEL 4.9 MG/DL (2.5-4.9); POTASSIUM SERUM 4.3 MEQ/L (3.5-5.1); SODIUM LEVEL 140 MEQ/L (136-145); THYROID STIMULATING HORMONE 0.405 uIU/ML (0.358-3.740)
== END ==
LOC: M LAB 16:40
PROVIDERS: ATTEND Internal Medicine Cardiovascular Disease
DX: I48.0 Paroxysmal atrial fibrillation (principal); I50.32 Chronic diastolic (congestive) heart failure; I11.0 Hypertensive heart disease with heart failure; E03.9 Hypothyroidism, unspecified